=== PATIENT | female | born 1945 | race Caucasian/White ===

== ENCOUNTER 2019-10-22 14:39 | Emergency (ER) | payer OTHER ==
[2019-10-22 15:53] LABS: Absolute Lymphocytes (CBC) 1.4 K/uL (0.7-4.9); Basophils % 0.5 % (0-1.3); Hematocrit 38.2 % (36.0-45.0); Lymphocytes % 8.9 % (15.3-44.8); MPV 9.5 fL (7.6-11.3); RBC Red Blood Cell Count 4.61 M/uL (3.86-4.86)
[2019-10-22 15:55] LABS: Urine Blood NEGATIVE (NEG); Urine Glucose NEGATIVE (NEG); Urine Protein 1+ (NEG); Urine pH 7.5 (5.0-7.0)
[2019-10-22 16:06] LABS: Potassium 4.3 mmol/L (3.5-5.1)
[2019-10-22 16:22] LABS: Urine Bacteria >50 /HPF (<20); Urine RBC NONE SEEN /HPF (NONE SEEN)
--- NOTE | 2019-10-22 16:22 | RAD REPORT ---
EXAM DESCRIPTION: RAD - Chest Single View - 10/22/2019 3:40 pm CLINICAL HISTORY: Cough, shortness of breath COMPARISON: July 2018 TECHNIQUE: AP portable chest image was obtained 1535 hours . FINDINGS: Interstitial fibrotic pattern matches comparison. No focal lung parenchymal process. No fa ilure or volume overload. Heart and vasculature are normal. No measurable pleural effusion and no pneumothorax. No acute bony abnormality seen. No acute aortic findings suspected. IMPRESSION: No acute cardiopulmonary process. Interstitial fibrotic pattern is stable from July 2018.
[2019-10-22 16:23] LABS: Urine Culture Reflex Order NOT NEEDED; Urine Mucus 1+ /HPF (NONE SEEN)
[2019-10-22] MEDS ORDERED: IBUPROFEN 200 MG TAB PO ONE (16:32)
--- NOTE | 2019-10-22 17:14 | RAD REPORT ---
EXAM DESCRIPTION: CT - Abdomen Pelvis W Contrast - 10/22/2019 5:02 pm CLINICAL HISTORY: ABD PAIN COMPARISON: None. TECHNIQUE: Biphasic, helical CT imaging of the abdomen and pelvis was performed following 100 ml non -ionic IV contrast. No oral contrast administered. All CT scans are performed using dose optimization technique as appropriate and may include automated exposure control or mA/KV adjustment according to patient size. FINDINGS: No acute pleural or parenchymal finding of either lung base. A large hiatal hernia is pres ent. No pericardial thickening or effusion. The liver, spleen, and pancreas show no suspicious findings. Gallbladder and biliary tree are also wi thout suspicious finding. Symmetric renal function is seen with no hydronephrosis or suspicious renal mass. No pyelonephritis o r acute parenchymal process. Urinary bladder is fully contracted limiting assessment. Uterus and ovar ies show no suspicious findings. No adnexal mass. No adrenal abnormalities. No acute gastric finding. No acute small bowel finding. No appendicitis. Moderate stool volume seen i n the colon from cecum through left-side transverse colon. Approximately 4-5 centimeter long segment of descending colon shows circumferential wall thickening with stranding in the adjacent fat. A few p unctate air densities are present outside of the lumen. No abscess. The punctate extraluminal air is not significant. More distally a prominent sigmoid diverticulosis without additional site of divertic ulitis. No pneumatosis. No other areas of free air or inflammatory stranding. No hernia, mass or bu lky lymphadenopathy. Disc and bony degenerative changes are present. No acute bone finding. Patient has a very large infrarenal abdominal aortic aneurysm. This measures 9.5 cm AP x 7.4 cm TR an d extends over a 14 centimeter length. Mural thrombus fills the aneurysm. There is a 3 centimeter x 3 centimeter contrast opacified patent lumen. At the proximal aspect there is extensive atheroscleroti c change. IMPRESSION: Very large infrarenal abdominal aortic aneurysm measuring 9.5 x 7.4 cm in cross-sectiona l diameter. Aneurysm extends over a 14 centimeter length from renal artery's to bifurcation. There is a 3 centimeter diameter patent contrast opacified channel. No evidence for leakage of the an eurysm. Acute diverticulitis of the descending colon. Stranding is present in the adjacent fat with a few pun ctate extraluminal air collections. No abscess or surgically emergent finding.
[2019-10-22] MEDS ORDERED: NICOTINE 21 MG/PAT TD ONE (17:48)
[2019-10-22] MEDS ORDERED: CIPROFLOXACIN 400mg IV 400 MG/200 ML BAG IV ONE (17:48)
[2019-10-22] MEDS ORDERED: METRONIDAZOLE 500mg IVPB 500 MG/100 ML BAG IV ONE (17:48)
--- NOTE | 2019-10-22 18:36 | EDPHYS ---
Physician Documentation [facility] Name: Jennifer Bejarano Age: 74 yrs Sex: Female : 1945 Arrival Date: 10/22/2019 Time: 14:41 Bed 26 Private MD: ED Physician Craig Jones HPI: 10/22 15:25 This 74 yrs old Female presents to ER via Ambulatory with complaints of la1 Cough, Back Pain, Fever. 15:25 The patient or guardian reports cough, that is intermittent, described as moderate. la1 Onset: The symptoms/episode began/occurred 2 day(s) ago. Severity of symptoms: At their worst the symptoms were mild. Modifying factors: The symptoms are alleviated by nothing, the symptoms are aggravated by nothing. Associated signs and symptoms: Pertinent positives: fever, Pertinent negatives: chest pain, diarrhea, ear ache, nausea. The patient has not experienced similar symptoms in the past. The patient has not recently seen a physician. Pt reports that for the last two weeks she has had increased sputum production and then recently began having lower abd/hip pain and fever. Historical: - Allergies: 15:24 PENICILLINS; mg2 - Home Meds: 15:24 Zoloft oral [Active]; mg2 - PMHx: 15:24 Anxiety; mg2 - PSHx: 15:24 None; mg2 - Immunization history:: Flu vaccine is not up to date. - Social history:: Smoking status: Patient uses tobacco products, smokes one-half pack cigarettes per day, Patient uses alcohol, but reports only rare drinking. Patient/guardian denies using street drugs, IV drugs. - Ebola Screening: : No symptoms or risks identified at this time. ROS: 15:26 Constitutional: + fever/chills Eyes: Negative for injury, pain, redness, and discharge, la1 ENT: Negative for injury, pain, and discharge, Neck: Negative for injury, pain, and swelling, Cardiovascular: Negative for chest pain, palpitations, and edema, Respiratory: + cough Abdomen/GI: Negative for abdominal pain, nausea, vomiting, diarrhea, and constipation, Back: Negative for injury and pain, MS/Extremity: Negative for injury and deformity, Neuro: Negative for headache, weakness, numbness, tingling, and seizure. Exam: 15:27 Constitutional: This is a well developed, well nourished patient who is awake, alert, la1 and in no acute distress. Head/Face: Normocephalic, atraumatic. Eyes: Pupils equal round and reactive to light, extra-ocular motions intact. Periorbital areas with no swelling, redness, or edema. ENT: Mucous membranes moist. Neck: . Supple, full range of motion without nuchal rigidity, or vertebral point tenderness. No Meningismus. Chest/axilla: Normal chest wall appearance and motion. Nontender with no deformity. No lesions are appreciated. Cardiovascular: Regular rate and rhythm with a normal S1 and S2. No gallops, murmurs, or rubs. Normal PMI, no JVD. No pulse deficits. 15:27 Respiratory: the patient does not display signs of respiratory distress, Respirations: normal, Breath sounds: wheezing: expiratory that is mild, is scattered. 15:27 Abdomen/GI: Inspection: abdomen appears normal, Bowel sounds: normal, in all quadrants, Palpation: abdomen is soft and non-tender, in all quadrants, Indicators: McBurney's point is not tender, Rhodes's sign is negative, Rovsing's sign is negative, Obturator sign is negative, Psoas sign is negative. 15:27 Back: CVA tenderness, is absent, vertebral tenderness, is not appreciated. Vital Signs: 15:22 BP 110 / 76; Pulse 84; Resp 18; Temp 99.6; Pulse Ox 100% on R/A; Weight 74.84 kg; mg2 Height 5 ft. 7 in. (170.18 cm); Pain 4/10; 16:36 BP 106 / 61; Pulse 69; Resp 18; Pulse Ox 97% on R/A; Pain 5/10; mg2 17:50 BP 104 / 51; Pulse 66; Resp 18; Pulse Ox 95% on R/A; mg2 18:50 BP 110 / 60; Pulse 65; Resp 18; Temp 98; Pulse Ox 100% on R/A; mg2 15:22 Body Mass Index 25.84 (74.84 kg, 170.18 cm) mg2 MDM: 15:08 Patient medically screened. la1 18:33 Data reviewed: vital signs, nurses notes, lab test result(s), radiologic studies, I la1 have discussed the patient's presentation/case with the attending Emergency Department Physician; and as a result, I will admit patient. Data interpreted: Pulse oximetry: on room air is 95 %. Interpretation: normal. Counseling: I had a detailed discussion with the patient and/or guardian regarding: the historical points, exam findings, and any diagnostic results supporting the discharge/admit diagnosis, lab results, radiology results, the need to transfer to another facility, [facility] does not immediately have the required specialist. Physician consultation: was called at 18:00, was contacted at 18:00, regarding regarding transfer, to [facility]. ED course: spoke with Dr. Burton at [facility] who accepted pt for AAA. . 10/22 15:24 Order name: CBC with Diff; Complete Time: 16:21 la1 10/22 15:24 Order name: BMP; Complete Time: 16:21 la1 10/22 15:24 Order name: Flu; Complete Time: 16:21 la1 10/22 15:36 Order name: Urine Microscopic Only; Complete Time: 16:24 la1 10/22 15:48 Order name: Urine Dipstick--Ancillary (enter results); Complete Time: 16:21 bd 10/22 15:24 Order name: Urine Dipstick-Ancillary (obtain specimen); Complete Time: 15:39 la1 10/22 15:24 Order name: Chest Single View XRAY; Complete Time: 17:32 la1 10/22 15:24 Order name: SL; Complete Time: 15:39 la1 10/22 16:47 Order name: CT Abd/Pelvis - IV Contrast Only; Complete Time: 17:32 la1 Administered Medications: 16:35 Drug: Motrin 200 mg Route: PO; mg2 17:42 Follow up: Response: No adverse reaction mg2 17:50 Drug: Flagyl 500 mg Volume: 100 ml; Route: IVPB; Rate: 200 ml/hr; Infused Over: 30 mg2 mins; Site: right forearm; 18:20 Follow up: Response: No adverse reaction; IV Status: Completed infusion mg2 18:25 Drug: Cipro 400 mg Volume: 200 ml; Route: IVPB; Infused Over: 60 mins; Site: right mg2 forearm; 19:25 Follow up: Response: No adverse reaction; IV Status: Completed infusion mg2 19:12 Drug: Nicotine 21 mg/24 hr 1 patches {Note: in the left arm.} Route: Transdermal; Site: mg2 affected area; Disposition: 10/22/19 18:36 Transfer ordered to [facility]. Diagnosis are Abdominal aortic aneurysm, without rupture, Diverticulitis without perforation, bleeding, or abscess. - Reason for transfer: Higher level of care. - Accepting physician is Dr. Burton. - Condition is Stable. - Problem is new. - Symptoms are unchanged. Addendum: 10/23/2019 21:07 Co-signature as Attending Physician, Craig Jones MD I agree with the assessment and k dr plan of care. Signatures: Dispatcher [employer] EDMS Craig Jones MD MD kdr Mehul Goel, ASSOCIATE PROFESSOR OF LITERACY-C ASSOCIATE PROFESSOR OF LITERACY-Cla1 Rogelio Das RN RN mg2 Corrections: (The following items were deleted from the chart) 10/22 19:20 18:36 10/22/2019 18:36 Transfer ordered to [facility]. Diagnosis is mg2 Abdominal aortic aneurysm, without rupture; Diverticulitis without perforation, bleeding, or abscess. Reason for transfer: Higher level of care. Accepting physician is Dr. Burton. Condition is Stable. Problem is new. Symptoms are unchanged. la1
--- NOTE | 2019-10-22 18:36 | ER ---
Nurse's Notes [facility] Name: Jennifer Bejarano Age: 74 yrs Sex: Female : 1945 Arrival Date: 10/22/2019 Time: 14:41 Bed 26 Private MD: Diagnosis: Abdominal aortic aneurysm, without rupture;Diverticulitis without perforation, bleeding, or abscess Presentation: 10/22 15:20 Presenting complaint: Patient states: i have both hip pain and cough for few days. i mg2 think i have kidney stones. i took 1 tab motrin \T\ 1300. Transition of care: patient was not received from another setting of care. Onset of symptoms was October 2019. Risk Assessment: Do you want to hurt yourself or someone else? Patient reports no desire to harm self or others. Initial Sepsis Screen: Does the patient meet any 2 criteria? No. Patient's initial sepsis screen is negative. Does the patient have a suspected source of infection? No. Patient's initial sepsis screen is negative. Care prior to arrival: None. 15:20 Method Of Arrival: Ambulatory mg2 15:20 Acuity: NATASHA 3 mg2 Historical: - Allergies: 15:24 PENICILLINS; mg2 - Home Meds: 15:24 Zoloft oral [Active]; mg2 - PMHx: 15:24 Anxiety; mg2 - PSHx: 15:24 None; mg2 - Immunization history:: Flu vaccine is not up to date. - Social history:: Smoking status: Patient uses tobacco products, smokes one-half pack cigarettes per day, Patient uses alcohol, but reports only rare drinking. Patient/guardian denies using street drugs, IV drugs. - Ebola Screening: : No symptoms or risks identified at this time. Screenin:25 Abuse screen: Denies threats or abuse. Denies injuries from another. Nutritional mg2 screening: No deficits noted. Tuberculosis screening: No symptoms or risk factors identified. Fall Risk None identified. Assessment: 16:37 General: Appears in no apparent distress. comfortable, Behavior is calm, cooperative. mg2 Pain: Complains of pain in back Pain does not radiate. Pain currently is 5 out of 10 on a pain scale. Quality of pain is described as aching, Pain began gradually, Is intermittent. Neuro: Level of Consciousness is awake, alert, obeys commands, Oriented to person, place, time, situation. Cardiovascular: Capillary refill < 3 seconds Patient's skin is warm and dry. Respiratory: Airway is patent Respiratory effort is even, unlabored, Respiratory pattern is regular, symmetrical. GI: No signs and/or symptoms were reported involving the gastrointestinal system. : Urine is cloudy, Reports pain in bilateral flank(s), in lower back. EENT: No signs and/or symptoms were reported regarding the EENT system. Derm: Skin is intact, is healthy with good turgor, Skin is pink, warm \T\ dry. normal. Musculoskeletal: Circulation, motion, and sensation intact. Capillary refill < 3 seconds. 17:49 Reassessment: Patient appears in no apparent distress at this time. Patient and/or mg2 family updated on plan of care and expected duration. Pain level reassessed. Patient is alert, oriented x 3, equal unlabored respirations, skin warm/dry/pink. 18:41 Reassessment: Report called to Nilam HAMMOND at [facility]. hb 18:59 Reassessment: Patient appears in no apparent distress at this time. Patient and/or mg2 family updated on plan of care and expected duration. Pain level reassessed. Patient is alert, oriented x 3, equal unlabored respirations, skin warm/dry/pink. 19:10 Reassessment: patient picked by EMS. patient in good condition. pain-free. mg2 Vital Signs: 15:22 BP 110 / 76; Pulse 84; Resp 18; Temp 99.6; Pulse Ox 100% on R/A; Weight 74.84 kg; mg2 Height 5 ft. 7 in. (170.18 cm); Pain 4/10; 16:36 BP 106 / 61; Pulse 69; Resp 18; Pulse Ox 97% on R/A; Pain 5/10; mg2 17:50 BP 104 / 51; Pulse 66; Resp 18; Pulse Ox 95% on R/A; mg2 18:50 BP 110 / 60; Pulse 65; Resp 18; Temp 98; Pulse Ox 100% on R/A; mg2 15:22 Body Mass Index 25.84 (74.84 kg, 170.18 cm) mg2 ED Course: 14:41 Patient arrived in ED. as 15:08 Mehul Goel FNP-C [facility]. la1 15:08 Craig Jones MD is Attending Physician. la1 15:19 Rogelio Das, RN is Primary Nurse. mg2 15:22 Triage completed. mg2 15:24 Arm band placed on. mg2 15:39 No provider procedures requiring assistance completed. Inserted saline lock: 20 gauge mg2 in right forearm, using aseptic technique. Blood collected. 15:43 Chest Single View XRAY In Process Unspecified. EDMS 16:39 Patient has correct armband on for positive identification. Pulse ox on. NIBP on. mg2 17:03 CT Abd/Pelvis - IV Contrast Only In Process Unspecified. EDMS 19:19 Patient transferred, IV remains in place. mg2 Administered Medications: 16:35 Drug: Motrin 200 mg Route: PO; mg2 17:42 Follow up: Response: No adverse reaction mg2 17:50 Drug: Flagyl 500 mg Volume: 100 ml; Route: IVPB; Rate: 200 ml/hr; Infused Over: 30 mg2 mins; Site: right forearm; 18:20 Follow up: Response: No adverse reaction; IV Status: Completed infusion mg2 18:25 Drug: Cipro 400 mg Volume: 200 ml; Route: IVPB; Infused Over: 60 mins; Site: right mg2 forearm; 19:25 Follow up: Response: No adverse reaction; IV Status: Completed infusion mg2 19:12 Drug: Nicotine 21 mg/24 hr 1 patches {Note: in the left arm.} Route: Transdermal; Site: [facility] [place]; Outcome: 18:36 ER care complete, transfer ordered by . la1 19:19 Transferred by ground EMS to [facility], Transfer form completed. mg2 19:19 Condition: stable 19:19 Instructed on the need for transfer, Demonstrated understanding of instructions. 19:20 Patient left the ED. mg2 Signatures: Dispatcher [employer] EDMS Cathleen Horton Lee, MEDICAL BILLING SPECIALIST-C MEDICAL BILLING SPECIALIST-Cla1 Cleo Lares RN RN Rogelio Das, MANISH RN mg2 Corrections: (The following items were deleted from the chart) 19:00 17:50 Pulse 66bpm; Resp 18bpm; Pulse Ox 95% RA; mg2 mg2
== END 2019-10-22 19:20 | disposition short-term general hospital (02) ==
LOC: ER 14:39
DX: I71.4 Abdominal aortic aneurysm, without rupture (principal); K57.32 Diverticulitis of large intestine without perforation or abscess without bleeding; Z88.0 Allergy status to penicillin; F41.9 Anxiety disorder, unspecified; F17.210 Nicotine dependence, cigarettes, uncomplicated
CPT/HCPCS: 96365; 96367; 85025; 80048; 36415; 87804 ×2; 74177; 71045; 99285; Q9967; J0744; 81003; 81015

== ENCOUNTER 2023-08-13 11:41 | Emergency (ER) | payer OTHER ==
--- OUTSIDE RECORDS SUMMARY | 2023-08-13 11:46 | XMS REPORT | Continuity of Care Document ---
:[address] [facility] t Address [address] [place] [address] Care Team Providers Name Role Phone No, Pcp [facility] Primary Care Physician Unavailable TAMIKO MARQUEZ Attending Clinician Unavailable TAMIKO MARQUEZ Admitting Clinician Unavailable Problems Condition Condition Condition Status Onset Resolution Last Treating Co mments Source Name Details Category Date Date Treatment Clinician Date Acute Acute Disease Active 2018-[address] [facility] [address] post-opera post-opera 2-23 Roxana kes tive pain tive pain 00:00: [facility] [address] Acute Acute Disease Active 2018-[address] [facility] [address] blood loss blood loss 2-23 Roxana kes anemia anemia 00:00: Medical [address] Symptomati Symptomati Disease Active 2018-[address] [facility] AAA s/p c AAA s/p 2- [facility] EVAR w/ EVAR w/ 00:00: Medical Dr. Palma [address] Coselli on Coselli on 10/26/19 10/26/19 Hypokalemi Hypokalemi Disease Active 2018-[address] [facility] a [facility] [address] Smoking Smoking Disease Active 2018-[address] [facility] greater greater 2- [facility] than 40 than 40 00:00: Medical pack years pack years 00 Ce nter Hypertensi Hypertensi Disease Active 2018-[address] ve ve 2- [facility] emergency emergency 00:00: Medi afshan [address] Diverticul Diverticul Disease Active 2018-[address] itis itis 2- [facility] 00:00: Medical [address] [place] Abdominal Abdominal Disease Recurre 2018-[address] aortic aortic nce 12-24 [facility] aneurysm aneurysm 00:00: Medica l (AAA) (AAA) 00 Center Allergies, Adverse Reactions, Alerts This patient has no known allergies or adverse reactions. Social History Social Habit Start Date Stop Date Quantity Comments Source History of tobacco Smokes tobacco [facility] Cigarettes smoked 2019-10-22 2019-10-[address] [facility] current (pack per 00:00:00 00:00:00 Medical Center day) - Reported Cigarette 2019-10-22 2019-10-[address] [facility] pack-years 00:00:00 00:00:00 [facility] Tobacco use and 2019-10-22 2019-10-22 Smokeless [address] [facility] exposure 00:00:00 00:00:00 non-user [facility] Sex Assigned At [birth year] [facility] [address] Roxana kes 00:00:00 00:00:00 [facility] Smoking Status Start Date Stop Date Source Smokes tobacco daily 2019-10-22 00:00:00 [facility] Medications Ordered Filled Start Stop Current Ordering Indication Dosage Frequency Signature Comments Components Source Medication Medication Date Date Medication? Clinician (SIG) Name Name ALPRAZolam 2018-11 Yes .25mg Take 0.[address] (XANAX) 2-24 mg by [facility] 0.25 MG 16:51: mouth Medical tablet 51 every Center night as needed for Anxiety. sertraline Yes 100mg QD Take [address] (ZOLOFT) 9-21 mg by [facility] 100 MG 00:00: mouth Medical tablet 00 daily. Center Procedures This patient has no known procedures. Results Test Description Test Time Test Comments Results Result [facility] e Comments CTA, CHEST, 2019-10-28 Reason for Addendum BeginsREPORT ABDOMEN - PELVIS, 16:19:00 exam:->Post STATUS:A PATIENT ID: FOR DISSECTION EVAR [id number] I agree with the nonvascular findings detailed by Dr. Nichols. Additional nonvascular findings include: *The apparent right apical nodule likely represents scarring. *New groundglass opacities in the left upper lobe. Pneumonia cannot be excluded. *Groundglass nodules measure 9 mm in the left upper lobe (axial series image 41) and 1.1 cm in the right upper lobe (axial series image 88). Follow-up chest CT is recommended in 6 months for reassessment. *2.8 x 1.6 cm air and fluid-containing structure medial to the descending colon, likely contained diverticular perforation or abscess. Signed: Lawrence Cummins MDReport Verified Date/Time: 10/28/2019 16:19:20 Reading Location: [facility] Diagnostic Imaging Reading Room - [place] [id number] angiography of the thoracoabdominal aorta and pelvic arteries, 28-Oct-19 INDICATION: This is a 74 year old female post endostent placement in the abdominal aorta presents for follow-up assessment. TECHNIQUE: Spiral acquisition before and during intravenous contrast administration using a Bridgett CT scanner. Images were obtained before and during the dynamic passage of intravenous contrast material. Multi-planar 3-D volume-rendering reconstruction was performed using an independent workstation interactively by the interpreting physician as well as the 3-D specialist for optimal visualisation of the thoracoabdominal aorta, the pelvic arteries as well as its proximal branches. Please refer to the contrast sheet scanned in the EPIC system for the amount and route of contrast given. This exam was performed according to our departmental dose-optimisation programme, which includes automated exposure control, adjustment of the mA and/or kV according to patient size and/or use of iterative reconstruction technique. Dose modulation, iterative reconstruction, and/or weight based adjustment of the mA/kV was utilized to reduce the radiation dose to as low as reasonably achievable. ECG gating was not utilized to minimise radiation exposure, especially the region of interest in the abdomen and not in the chest. FINDINGS: VASCULAR: The central pulmonary artery is normal in calibre. The cardiac chambers demonstrate normal atrioventricular and ventriculoarterial concordance, and systemic and pulmonary venous return. In the nongated data set, the left ventricle is normal in size. No pericardial effusion is identified. Cortical origins are normal and calcific lesions identified in the proximal LCx and LAD. No acute pathology is identified in the thoracic aorta. At least moderate noncalcific atherosclerosis is identified in the transverse arch and descending thoracic aorta. The thickness of the protruding noncalcific atheroma in the descending thoracic aorta, at image 175, is approximately 12 mm. Finally, in the posterior aspect of the descending thoracic aorta, at image 102, there is likely some linear thrombus identified. See snapshots for details. Mobility cannot be commented upon. Arch vessel branching pattern is normal, and the visualised arch vessels are seen to be widely patent proximally, however, there is nonobstructive atherosclerosis seen at the takeoff of the left subclavian artery, though there is still 50% cross-sectional area that is patent indicating no significant obstructive lesion is present at this level. Remainder of the the left subclavian artery is widely patent. Remainder of the the arch vessels are widely patent. In the abdominal aorta, endostent is placed, commencing inferior to the takeoff of the left renal artery, with typical crisscrossing patent and the left limbs terminates in the left and the right common unit arteries. In the available images, no endoleak is identified. The right limb is widely patent. The left left limb is also widely patent though at image 322, the diameter is approximately 5 to 6 mm, when compared to the adjacent right iliac limb at the similar level of 10 to 11 mm. Correlate with implantation history. Thereafter, the external iliac, common femoral, and the visualised SFA, bilaterally, widely patent with minimal nonobstructive atherosclerosis identified. The coeliac axis, SMA are widely patent. KRZYSZTOF fills retrogradely by surrounding collaterals. There are single left and right renal arteries identified. The right renal artery is widely patent. A mixture of calcific and noncalcific atherosclerosis is identified at the takeoff of the left renal artery, consequent is moderate to significant focal lesion. Quantitative dimensions of the aorta are as follows: 3.4 cm at the sinuses of Valsalva (the sino-tubular junction is preserved); 2.7 cm at the proximal ascending thoracic aorta; 3.4 cm at the mid ascending aorta; 2.7 cm at the distal ascending aorta; 2.7 cm at the mid transverse arch; 2.8 cm at the proximal descending aorta; 3.3 cm at the mid descending aorta; 3.3 x 3.2 cm at the distal descending thoracic aorta. In the abdomen, the aorta measures 3.5 x 3.2 cm at the mesenteric segment; 3.2 x 3.1 cm at the renal segment; #1 x 7.9 cm at the infrarenal; 6.8 x 5.9 cm at the distal infrarenal; and 4.3 cm at aortic bifurcation. Aortic volume: Not measured. NON-VASCULAR: The visualised thyroid gland is unremarkable. The chest wall mediastinum appears grossly unremarkable. No significant adenopathy is identified in the mediastinum, though some small lymph nodes are seen, some with fatty hilum, consider nonspecific in nature. In the lung windows, no endobronchial lesion is seen, and there could be some debris/mucus stranding identified in the anterior aspect of the trachea, for example image 48. Mild bibasal pleural effusions identified with associated lytic changes. Some subsegmental atelectatic changes are seen. Centrilobular emphysematous changes identified, mostly in the upper lobes. There could be a 5 to 6 mm noncalcified nodule identified in the right apex at image 23. In the abdomen, the liver and spleen appears unremarkable. The liver edge is smooth. No abnormal enhancing structures identified. The gallbladder, adrenal glands, and the pancreas appears mostly unremarkable. In the precontrast series, there is some slight identified in the gallbladder. 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 This could be to follow in future aorta examination. No acute renal pathology is seen and no hydronephrosis or perirenal fluid collection is identified. Some cortical scarring is identified in the lateral as of the left kidney. Subcentimeter hypodensity is identified in the posterior aspect of the right kidney measures one to characterise. Bowel is not well assessed by CT angiography as enteric contrast is not given. No obvious bowel dilation is identified. Scattered diverticular disease is seen in the distal colon with no inflammatory changes identified. A moderate size hiatus hernia is identified. The uterus is unremarkable; tiny calcification is seen that may represent uterine fibroid. Foci of air is identified in the bladder that could be due to recent catheterisation. No obvious abnormal adnexal is is seen and CT is not optimised in the assessment of pelvic gynecological structure. No free air is identified abdomen and pelvis. Some trace free fluid identified in dependent portion of the pelvis, in the right, simple in nature, considered nonspecific in nature. In the bony windows, no acute bony pathology is identified. Mild degenerative changes is noted. CONCLUSIONS: 1. No acute pathology is identified in the thoracic aorta. However, protruding atheroma is seen especially in the transverse arch and descending thoracic aorta are as described above. Endostent placement is seen in the abdominal aorta with no endoleak identified artery and delay images. The pelvic arteries are patent, bilaterally. There is no evidence of acute aortic pathology, specifically, there is no dissection, intramural hematoma, or contained rupture. Quantitative dimension of the thoracoabdominal aorta are as described above. Aortic volume is not measured. The radiology department requires follow duration to be dictated which is unnecessary as the ordering physician is the [employer] Cardiovascular Surgeon of the [facility], and patient will be follow-up according to stent-graft protocol. 2. Patent mesenteric and renal arteries. 3. Other findings as described above. Pulmonary emphysematous changes. Noncalcified nodule is seen in the right apex measure 5 to 6 mm in diameter. No prior CT scans available for comparison. Professional society recommendation as follows: Nodule Size <6 mm High-Risk Patient: Optional CT at 12 months. 4. An addendum will be dictated regarding the non-vascular findings by the [employer] T[employer] Operator Radiologist. Signed: Vikram Nichols Verified Date/Time: 10/28/2019 12:43:56 , CHEST, 1 2019-10-28 Reason for FINAL REPORT PATIENT VIEW, NON DEPT 09:36:00 exam:->Post-opS ID: [id number] CHEST AP hould this be PORTABLE Comparison performed at exam: 10/27/2019 the History provided: bedside?->Yes Postop follow-up Heart size normal. Vascular congestion has cleared. Minimal basilar atelectasis. No focal consolidation. Signed: Marlena Awad Verified Date/Time: 10/28/2019 09:36:04 Reading Location: [facility] Diagnostic Imaging Reading Room - [address] PHORUS 2019-10-28 06:31:00 Test Item Value Reference Range Interpretation Comme nts PHOSPHORUS (BEAKER) (test code = 604) 2.9 mg/dL 2.3-4.7 [id number] 06:31:00 Test Item Value Reference Range Interpretation Comments MAGNESIUM (BEAKER) (test code = 1.8 mg/dL 1.6-2.6 627) BASIC METABOLIC [id number] 06:31:00 Test Item Value Reference Range Interpretation Comments SODIUM (BEAKER) 135 meq/L 136-145 L (test code = 381) POTASSIUM (BEAKER) 3.0 meq/L 3.5-5.1 L (test code = 379) CHLORIDE (BEAKER) 103 meq/L 98-107 (test code = 382) CO2 (BEAKER) (test 23 meq/L 22-29 code = 355) BLOOD UREA NITROGEN 11 mg/dL 7-21 (BEAKER) (test code = 354) CREATININE (BEAKER) 0.89 mg/dL 0.57-1.25 (test code = 358) GLUCOSE RANDOM 123 mg/dL 70-105 H (BEAKER) (test code = 652) CALCIUM (BEAKER) 8.2 mg/dL 8.4-10.2 L (test code = 697) EGFR (BEAKER) (test 62 mL/min/1.73 ESTIMA LINDA GFR IS code = 1092) sq m NOT ACCURATE CREATININE CLEARANCE IN PREDICTING GLOMERULAR FILTRATION RATE . ESTIMATED GFR I S NOT APPLICABLE FOR DIALYSIS PATIEN TS. [id number] 05:40:00 Test Item Value Reference Range Interpretation Comments PARTIAL THROMBOPLASTIN TIME 38.0 seconds 22.5-36.0 H (BEAKER) (test code = 760) PROTHROMBIN [id number] 05:39:00 Test Item Value Reference Range Interpretation Comments PROTIME (BEAKER) (test code = 16.7 seconds 11.9-14.2 H 759) INR (BEAKER) (test code = 370) 1.4 <=5.9 Effective 04/02/2019: PT Reference Range ChangeNew: 11.9-14.2 Previous: 11.7- 14.7RECOMMENDED COUMADIN/WARFARIN INR THERAPY RANGESSTANDARD DOSE: 2.0-3.0 Includes: PROPHYLAXIS for venous thrombosis, systemic embolization; TREATMENT for venous thrombosis and/or pulmonary embolus.HIGH RISK: Target INR is 2.5-3.5 for patients wiht mechanical heart valves.CBC (HEMOGRAM ONLY)2019-10-28 05:29:00 Test Item Value Reference Range Interpretation Comments WHITE BLOOD CELL COUNT (BEAKER) 9.1 K/ L 3.5-10.5 (test code = 775) RED BLOOD CELL COUNT (BEAKER) 3.34 M/ L 3.93-5.22 L (test code = 761) HEMOGLOBIN (BEAKER) (test code = 9.0 GM/DL 11.2-15.7 L 410) HEMATOCRIT (BEAKER) (test code = 28.5 % 34.1-44.9 L 411) MEAN CORPUSCULAR VOLUME (BEAKER) 85.3 fL 79.4-94.8 (test code = 753) MEAN CORPUSCULAR HEMOGLOBIN 26.9 pg 25.6-32.2 (BEAKER) (test code = 751) MEAN CORPUSCULAR HEMOGLOBIN CONC 31.6 GM/DL 32.2-35.5 L (BEAKER) (test code = 752) RED CELL DISTRIBUTION WIDTH 14.1 % 11.7-14.4 (BEAKER) (test code = 412) PLATELET COUNT (BEAKER) (test 265 K/CU MM 150-450 code = 756) MEAN PLATELET VOLUME (BEAKER) 10.4 fL 9.4-12.3 (test code = 754) NUCLEATED RED BLOOD CELLS 0 /100 WBC 0-0 (BEAKER) (test code = 413) RAD, CHEST, 1 VIEW, NON [id number] 06:03:00Reason for exam:->Post-opShould this be performed at the bedside?->YesFINAL REPORT RAD, CHEST, 1 VIEW, NON DEPT INDICATION: Post-op COMPARISON: Exam from 17 hours prior FINDINGS: Portable frontal view of the chest. IMPRESSION: Support Lines: None. Lungs and pleura: Asymmetric elevation of the right hemidiaphragm with new small right pleural effusionand adjacent mild right basilar airspace disease. There is also left basilar subsegmental atelectasis. No pneumothorax.Heart and mediastinum: Stable contours. Additional findings: None. Signed: Mindi Ren MDReport Verified Date/Time: 10/27/2019 06:03:02 [id number] 04:53:00 Test Item Value Reference Range Interpretation Comments PHOSPHORUS (BEAKER) (test code = 3.2 mg/dL 2.3-4.7 604) [id number] 04:53:00 Test Item Value Reference Range Interpretation Comments MAGNESIUM (BEAKER) (test code = 1.8 mg/dL 1.6-2.6 627) BASIC METABOLIC [id number] 04:53:00 Test Item Value Reference Range Interpretation Comments SODIUM (BEAKER) 137 meq/L 136-145 (test code = 381) POTASSIUM (BEAKER) 3.2 meq/L 3.5-5.1 L (test code = 379) CHLORIDE (BEAKER) 106 meq/L 98-107 (test code = 382) CO2 (BEAKER) (test 24 meq/L 22-29 code = 355) BLOOD UREA NITROGEN 9 mg/dL 7-21 (BEAKER) (test code = 354) CREATININE (BEAKER) 0.99 mg/dL 0.57-1.25 (test code = 358) GLUCOSE RANDOM 105 mg/dL 70-105 (BEAKER) (test code = 652) CALCIUM (BEAKER) 8.4 mg/dL 8.4-10.2 (test code = 697) EGFR (BEAKER) (test 55 mL/min/1.73 ESTIMA LINDA GFR IS code = 1092) sq m NOT ACCURATE CREATININE CLEARANCE IN PREDICTING GLOMERULAR FILTRATION RATE . ESTIMATED GFR I S NOT APPLICABLE FOR DIALYSIS PATIEN TS. [id number] 04:30:00 Test Item Value Reference Range Interpretation Comments PARTIAL THROMBOPLASTIN TIME 33.4 seconds 22.5-36.0 (BEAKER) (test code = 760) PROTHROMBIN [id number] 04:29:00 Test Item Value Reference Range Interpretation Comments PROTIME (BEAKER) (test code = 15.7 seconds 11.9-14.2 H 759) INR (BEAKER) (test code = 370) 1.3 <=5.9 Effective 04/02/2019: PT Reference Range ChangeNew: 11.9-14.2 Previous: 11.7- 14.7RECOMMENDED COUMADIN/WARFARIN INR THERAPY RANGESSTANDARD DOSE: 2.0-3.0 Includes: PROPHYLAXIS for venous thrombosis, systemic embolization; TREATMENT for venous thrombosis and/or pulmonary embolus.HIGH RISK: Target INR is 2.5-3.5 for patients wiht mechanical heart valves.CBC W/PLT COUNT & AUTO [id number] 04:25:00 Test Item Value Reference Range Interpretation Comments WHITE BLOOD CELL COUNT (BEAKER) 8.7 K/ L 3.5-10.5 (test code = 775) RED BLOOD CELL COUNT (BEAKER) 3.50 M/ L 3.93-5.22 L (test code = 761) HEMOGLOBIN (BEAKER) (test code = 9.4 GM/DL 11.2-15.7 L 410) HEMATOCRIT (BEAKER) (test code = 30.2 % 34.1-44.9 L 411) MEAN CORPUSCULAR VOLUME (BEAKER) 86.3 fL 79.4-94.8 (test code = 753) MEAN CORPUSCULAR HEMOGLOBIN 26.9 pg 25.6-32.2 (BEAKER) (test code = 751) MEAN CORPUSCULAR HEMOGLOBIN CONC 31.1 GM/DL 32.2-35.5 L (BEAKER) (test code = 752) RED CELL DISTRIBUTION WIDTH 14.0 % 11.7-14.4 (BEAKER) (test code = 412) PLATELET COUNT (BEAKER) (test 250 K/CU MM 150-450 code = 756) MEAN PLATELET VOLUME (BEAKER) 9.8 fL 9.4-12.3 (test code = 754) NUCLEATED RED BLOOD CELLS 0 /100 WBC 0-0 (BEAKER) (test code = 413) NEUTROPHILS RELATIVE PERCENT 75 % (BEAKER) (test code = 429) LYMPHOCYTES RELATIVE PERCENT 12 % (BEAKER) (test code = 430) MONOCYTES RELATIVE PERCENT 11 % (BEAKER) (test code = 431) EOSINOPHILS RELATIVE PERCENT 2 % (BEAKER) (test code = 432) BASOPHILS RELATIVE PERCENT 0 % (BEAKER) (test code = 437) NEUTROPHILS ABSOLUTE COUNT 6.50 K/ L 1.56-6.13 H (BEAKER) (test code = 670) LYMPHOCYTES ABSOLUTE COUNT 1.02 K/ L 1.18-3.74 L (BEAKER) (test code = 414) MONOCYTES ABSOLUTE COUNT (BEAKER) 0.94 K/ L 0.24-0.36 H (test code = 415) EOSINOPHILS ABSOLUTE COUNT 0.14 K/ L 0.04-0.36 (BEAKER) (test code = 416) BASOPHILS ABSOLUTE COUNT (BEAKER) 0.02 K/ L 0.01-0.08 (test code = 417) IMMATURE GRANULOCYTES-RELATIVE 1 % 0-1 PERCENT (BEAKER) (test code = 2801) CBC (HEMOGRAM ONLY)2019-10-27 04:25:00 Test Item Value Reference Range Interpretation Comments WHITE BLOOD CELL COUNT (BEAKER) 8.7 K/ L 3.5-10.5 (test code = 775) RED BLOOD CELL COUNT (BEAKER) 3.50 M/ L 3.93-5.22 L (test code = 761) HEMOGLOBIN (BEAKER) (test code = 9.4 GM/DL 11.2-15.7 L 410) HEMATOCRIT (BEAKER) (test code = 30.2 % 34.1-44.9 L 411) MEAN CORPUSCULAR VOLUME (BEAKER) 86.3 fL 79.4-94.8 (test code = 753) MEAN CORPUSCULAR HEMOGLOBIN 26.9 pg 25.6-32.2 (BEAKER) (test code = 751) MEAN CORPUSCULAR HEMOGLOBIN CONC 31.1 GM/DL 32.2-35.5 L (BEAKER) (test code = 752) RED CELL DISTRIBUTION WIDTH 14.0 % 11.7-14.4 (BEAKER) (test code = 412) PLATELET COUNT (BEAKER) (test 250 K/CU MM 150-450 code = 756) MEAN PLATELET VOLUME (BEAKER) 9.8 fL 9.4-12.3 (test code = 754) NUCLEATED RED BLOOD CELLS 0 /100 WBC 0-0 (BEAKER) (test code = 413) RAD, CHEST, 1 VIEW, NON [id number] 12:55:00Reason for exam:->Post-opShould this be performed at the bedside?->YesFINAL REPORT Chest, one view History: Postoperative assessment Comparison: noneFindings:Clear lungs. Normal size heart. No pleural effusion or pneumothorax. Impression:No acute findings in the chest Signed: Meir Rodriguez MDReport Verified Date/Time: 10/26/2019 12:55:31 Reading Location: [place] [id number] Ortho Consult Reading Room Electronically signed by: MEIR RODRIGUEZ MD on 10/06 12:55 [id number] 12:34:00 Test Item Value Reference Range Interpretation Comments PHOSPHORUS (BEAKER) (test code = 4.2 mg/dL 2.3-4.7 604) [id number] 12:34:00 Test Item Value Reference Range Interpretation Comments MAGNESIUM (BEAKER) (test code = 1.6 mg/dL 1.6-2.6 627) BASIC METABOLIC [id number] 12:34:00 Test Item Value Reference Range Interpretation Comments SODIUM (BEAKER) 139 meq/L 136-145 (test code = 381) POTASSIUM (BEAKER) 3.4 meq/L 3.5-5.1 L (test code = 379) CHLORIDE (BEAKER) 107 meq/L 98-107 (test code = 382) CO2 (BEAKER) (test 25 meq/L 22-29 code = 355) BLOOD UREA NITROGEN 8 mg/dL 7-21 (BEAKER) (test code = 354) CREATININE (BEAKER) 0.93 mg/dL 0.57-1.25 (test code = 358) GLUCOSE RANDOM 193 mg/dL 70-105 H (BEAKER) (test code = 652) CALCIUM (BEAKER) 8.7 mg/dL 8.4-10.2 (test code = 697) EGFR (BEAKER) (test 59 mL/min/1.73 ESTIMA LINDA GFR IS code = 1092) sq m NOT ACCURATE CREATININE CLEARANCE IN PREDICTING GLOMERULAR FILTRATION RATE . ESTIMATED GFR I S NOT APPLICABLE FOR DIALYSIS PATIEN TS. CBC W/PLT COUNT & AUTO [id number] 12:26:00 Test Item Value Reference Range Interpretation Comments WHITE BLOOD CELL COUNT (BEAKER) 12.2 K/ L 3.5-10.5 H (test code = 775) RED BLOOD CELL COUNT (BEAKER) 3.74 M/ L 3.93-5.22 L (test code = 761) HEMOGLOBIN (BEAKER) (test code = 10.2 GM/DL 11.2-15.7 L 410) HEMATOCRIT (BEAKER) (test code = 32.4 % 34.1-44.9 L 411) MEAN CORPUSCULAR VOLUME (BEAKER) 86.6 fL 79.4-94.8 (test code = 753) MEAN CORPUSCULAR HEMOGLOBIN 27.3 pg 25.6-32.2 (BEAKER) (test code = 751) MEAN CORPUSCULAR HEMOGLOBIN CONC 31.5 GM/DL 32.2-35.5 L (BEAKER) (test code = 752) RED CELL DISTRIBUTION WIDTH 14.1 % 11.7-14.4 (BEAKER) (test code = 412) PLATELET COUNT (BEAKER) (test 325 K/CU MM 150-450 code = 756) MEAN PLATELET VOLUME (BEAKER) 10.2 fL 9.4-12.3 (test code = 754) NUCLEATED RED BLOOD CELLS 0 /100 WBC 0-0 (BEAKER) (test code = 413) NEUTROPHILS RELATIVE PERCENT 66 % (BEAKER) (test code = 429) LYMPHOCYTES RELATIVE PERCENT 20 % (BEAKER) (test code = 430) MONOCYTES RELATIVE PERCENT 10 % (BEAKER) (test code = 431) EOSINOPHILS RELATIVE PERCENT 2 % (BEAKER) (test code = 432) BASOPHILS RELATIVE PERCENT 0 % (BEAKER) (test code = 437) NEUTROPHILS ABSOLUTE COUNT 8.02 K/ L 1.56-6.13 H (BEAKER) (test code = 670) LYMPHOCYTES ABSOLUTE COUNT 2.39 K/ L 1.18-3.74 (BEAKER) (test code = 414) MONOCYTES ABSOLUTE COUNT (BEAKER) 1.18 K/ L 0.24-0.36 H (test code = 415) EOSINOPHILS ABSOLUTE COUNT 0.27 K/ L 0.04-0.36 (BEAKER) (test code = 416) BASOPHILS ABSOLUTE COUNT (BEAKER) 0.05 K/ L 0.01-0.08 (test code = 417) IMMATURE GRANULOCYTES-RELATIVE 2 % 0-1 H PERCENT (BEAKER) (test code = 2801) [id number] 12:23:00 Test Item Value Reference Range Interpretation Comments PARTIAL THROMBOPLASTIN TIME 29.6 seconds 22.5-36.0 (BEAKER) (test code = 760) PROTHROMBIN [id number] 12:22:00 Test Item Value Reference Range Interpretation Comments PROTIME (BEAKER) (test code = 18.3 seconds 11.9-14.2 H 759) INR (BEAKER) (test code = 370) 1.6 <=5.9 Effective 04/02/2019: PT Reference Range ChangeNew: 11.9-14.2 Previous: 11.7- 14.7RECOMMENDED COUMADIN/WARFARIN INR THERAPY RANGESSTANDARD DOSE: 2.0-3.0 Includes: PROPHYLAXIS for venous thrombosis, systemic embolization; TREATMENT for venous thrombosis and/or pulmonary embolus.HIGH RISK: Target INR is 2.5-3.5 for patients wiht mechanical heart valves.CALCIUM, [id number] 12:11:00 Test Item Value Reference Range Interpretation Comments CALCIUM IONIZED (BEAKER) (test 1.16 mmol/L 1.12-1.27 code = 698) PH, BLOOD (BEAKER) (test code = 7.40 1810) BLOOD GAS, [id number] 12:11:00 Test Item Value Reference Range Interpretation Comments PH ARTERIAL (BEAKER) (test code = 7.41 7.35-7.45 383) PCO2 ARTERIAL (BEAKER) (test code 39 mmHg 35-45 = 384) PO2 ARTERIAL (BEAKER) (test code 64 mmHg 80-90 L = 385) O2 SATURATION ARTERIAL (BEAKER) 93.1 % 96.0-97.0 L (test code = 386) HCO3 ARTERIAL (BEAKER) (test code 24 mmol/L 21-29 = 388) BASE EXCESS ARTERIAL (BEAKER) -0.6 mmol/L -2.0-3.0 (test code = 387) PATIENT TEMPERATURE (BEAKER) 36.6 C (test code = 1818) FIO2 (BEAKER) (test code = 1819) 44.0 % [id number] 11:24:00 Test Item Value Reference Range Interpretation Comments ACTIVATED CLOTTING TIME 120 sec Refe rence Range: 74-137 (BEAKER) (test code = second s, 441) Baseline/TESTED AT [place] [id number] 11:24:00 Test Item Value Reference Range Interpretation Comments ACTIVATED CLOTTING TIME 131 sec Refe rence Range: 74-137 (BEAKER) (test code = second s, 441) Baseline/TESTED AT [address] [address] [id number] 11:24:00 Test Item Value Reference Range Interpretation Comments ACTIVATED CLOTTING TIME 263 sec Refe rence Range: 74-137 (BEAKER) (test code = second s, 441) Baseline/TESTED AT [place] [id number] [facility] [address] [id number] 11:24:00 Test Item Value Reference Range Interpretation Comments ACTIVATED CLOTTING TIME 208 sec Refe rence Range: 74-137 (BEAKER) (test code = second s, 441) Baseline/TESTED AT [facility] [address] [facility] [address] [id number] 11:24:00 Test Item Value Reference Range Interpretation Comments ACTIVATED CLOTTING TIME 191 sec Refe rence Range: 74-137 (BEAKER) (test code = second s, 441) Baseline/TESTED AT [facility] [address] [facility] [address] 0 [id number] 11:24:00 Test Item Value Reference Range Interpretation Comments ACTIVATED CLOTTING TIME 169 sec Refe rence Range: 74-137 (BEAKER) (test code = second s, 441) Baseline/TESTED AT [facility] [address] [facility] [address] 0 POTASSIUM-STAT [id number] 11:16:00 Test Item Value Reference Range Interpretation Comments POTASSIUM (BEAKER) (test code = 2.6 meq/L 3.6-5.5 LL 379) BLOOD GAS, [id number] 11:07:00 Test Item Value Reference Range Interpretation Comments PH ARTERIAL (BEAKER) (test code = 7.27 7.35-7.45 L 383) PCO2 ARTERIAL (BEAKER) (test code 42 mmHg 35-45 = 384) PO2 ARTERIAL (BEAKER) (test code 273 mmHg 80-90 H = 385) O2 SATURATION ARTERIAL (BEAKER) 99.5 % 96.0-97.0 H (test code = 386) HCO3 ARTERIAL (BEAKER) (test code 19 mmol/L 21-29 L = 388) BASE EXCESS ARTERIAL (BEAKER) -8.1 mmol/L -2.0-3.0 L (test code = 387) PATIENT TEMPERATURE (BEAKER) 35.7 C (test code = 1818) FIO2 (BEAKER) (test code = 1819) 60.0 % HGB/HCT (H&H) - STAT [id number] 11:07:00 Test Item Value Reference Range Interpretation Comments HEMOGLOBIN (BEAKER) (test code = 9.5 g/dL 12.0-15.0 L 410) HEMATOCRIT (BEAKER) (test code = 28.0 % 36.0-45.0 L 411) GLUCOSE-STAT [id number] 11:05:00 Test Item Value Reference Range Interpretation Comments GLUCOSE RANDOM (BEAKER) (test code 102 mg/dL 70-110 = 652) SODIUM NA-STAT [id number] 11:05:00 Test Item Value Reference Range Interpretation Comments SODIUM (BEAKER) (test code = 381) 137 meq/L 135-148 POTASSIUM-STAT [id number] 08:56:00 Test Item Value Reference Range Interpretation Comments POTASSIUM (BEAKER) (test code = 2.4 meq/L 3.6-5.5 LL 379) GLUCOSE-STAT [id number] 08:51:00 Test Item Value Reference Range Interpretation Comments GLUCOSE RANDOM (BEAKER) (test code 104 mg/dL 70-110 = 652) SODIUM NA-STAT [id number] 08:51:00 Test Item Value Reference Range Interpretation Comments SODIUM (BEAKER) (test code = 381) 136 meq/L 135-148 BLOOD GAS, [id number] 08:51:00 Test Item Value Reference Range Interpretation Comments PH ARTERIAL (BEAKER) (test code = 7.42 7.35-7.45 383) PCO2 ARTERIAL (BEAKER) (test code 37 mmHg 35-45 = 384) PO2 ARTERIAL (BEAKER) (test code 155 mmHg 80-90 H = 385) O2 SATURATION ARTERIAL (BEAKER) 99.1 % 96.0-97.0 H (test code = 386) HCO3 ARTERIAL (BEAKER) (test code 24 mmol/L 21-29 = 388) BASE EXCESS ARTERIAL (BEAKER) -0.9 mmol/L -2.0-3.0 (test code = 387) PATIENT TEMPERATURE (BEAKER) 36.5 C (test code = 1818) FIO2 (BEAKER) (test code = 1819) 65.0 % CALCIUM, [id number] 08:51:00 Test Item Value Reference Range Interpretation Comments CALCIUM IONIZED (BEAKER) (test 1.04 mmol/L 1.12-1.27 L code = 698) PH, BLOOD (BEAKER) (test code = 7.41 1810) HGB/HCT (H&H) - STAT [id number] 08:51:00 Test Item Value Reference Range Interpretation Comments HEMOGLOBIN (BEAKER) (test code = 10.3 g/dL 12.0-15.0 L 410) HEMATOCRIT (BEAKER) (test code = 30.0 % 36.0-45.0 L 411) [id number] 05:34:00 Test Item Value Reference Range Interpretation Comments MAGNESIUM (BEAKER) 1.9 mg/dL 1.6-2.6 Specimen slightly (test code = 627) hemolyzed [id number] 05:34:00 Test Item Value Reference Range Interpretation Comments PHOSPHORUS (BEAKER) 2.8 mg/dL 2.3-4.7 Specimen slightly (test code = 604) hemolyzed BASIC METABOLIC [id number] 05:34:00 Test Item Value Reference Range Interpretation Comments SODIUM (BEAKER) 137 meq/L 136-145 (test code = 381) POTASSIUM (BEAKER) 3.1 meq/L 3.5-5.1 L Specimen slightly (test code = 379) hemolyzed CHLORIDE (BEAKER) 104 meq/L 98-107 (test code = 382) CO2 (BEAKER) (test 24 meq/L 22-29 code = 355) BLOOD UREA NITROGEN 7 mg/dL 7-21 (BEAKER) (test code = 354) CREATININE (BEAKER) 0.80 mg/dL 0.57-1.25 Specimen slightly (test code = 358) hemolyzed GLUCOSE RANDOM 95 mg/dL 70-105 (BEAKER) (test code = 652) CALCIUM (BEAKER) 8.7 mg/dL 8.4-10.2 (test code = 697) EGFR (BEAKER) (test 71 mL/min/1.73 ESTIMA LINDA GFR IS code = 1092) sq m NOT ACCURATE CREATININE CLEARANCE IN PREDICTING GLOMERULAR FILTRATION RATE . ESTIMATED GFR I S NOT APPLICABLE FOR DIALYSIS PATIEN TS. [id number] 05:23:00 Test Item Value Reference Range Interpretation Comments PARTIAL THROMBOPLASTIN TIME 33.6 seconds 22.5-36.0 (BEAKER) (test code = 760) PROTHROMBIN [id number] 05:22:00 Test Item Value Reference Range Interpretation Comments PROTIME (BEAKER) (test code = 15.1 seconds 11.9-14.2 H 759) INR (BEAKER) (test code = 370) 1.3 <=5.9 Effective 04/02/2019: PT Reference Range ChangeNew: 11.9-14.2 Previous: 11.7- 14.7RECOMMENDED COUMADIN/WARFARIN INR THERAPY RANGESSTANDARD DOSE: 2.0-3.0 Includes: PROPHYLAXIS for venous thrombosis, systemic embolization; TREATMENT for venous thrombosis and/or pulmonary embolus.HIGH RISK: Target INR is 2.5-3.5 for patients wiht mechanical heart valves.CBC (HEMOGRAM ONLY)2019-10-26 05:16:00 Test Item Value Reference Range Interpretation Comments WHITE BLOOD CELL COUNT (BEAKER) 7.5 K/ L 3.5-10.5 (test code = 775) RED BLOOD CELL COUNT (BEAKER) 4.22 M/ L 3.93-5.22 (test code = 761) HEMOGLOBIN (BEAKER) (test code = 11.5 GM/DL 11.2-15.7 410) HEMATOCRIT (BEAKER) (test code = 36.8 % 34.1-44.9 411) MEAN CORPUSCULAR VOLUME (BEAKER) 87.2 fL 79.4-94.8 (test code = 753) MEAN CORPUSCULAR HEMOGLOBIN 27.3 pg 25.6-32.2 (BEAKER) (test code = 751) MEAN CORPUSCULAR HEMOGLOBIN CONC 31.3 GM/DL 32.2-35.5 L (BEAKER) (test code = 752) RED CELL DISTRIBUTION WIDTH 14.1 % 11.7-14.4 (BEAKER) (test code = 412) PLATELET COUNT (BEAKER) (test 328 K/CU MM 150-450 code = 756) MEAN PLATELET VOLUME (BEAKER) 10.7 fL 9.4-12.3 (test code = 754) NUCLEATED RED BLOOD CELLS 0 /100 WBC 0-0 (BEAKER) (test code = 413) [id number] 05:23:00 Test Item Value Reference Range Interpretation Comments MAGNESIUM (BEAKER) 1.9 mg/dL 1.6-2.6 Specimen slightly (test code = 627) hemolyzed [id number] 05:23:00 Test Item Value Reference Range Interpretation Comments PHOSPHORUS (BEAKER) 3.4 mg/dL 2.3-4.7 Specimen slightly (test code = 604) hemolyzed BASIC METABOLIC [id number] 05:23:00 Test Item Value Reference Range Interpretation Comments SODIUM (BEAKER) 132 meq/L 136-145 L (test code = 381) POTASSIUM (BEAKER) 3.8 meq/L 3.5-5.1 Specimen slightly (test code = 379) hemolyzed CHLORIDE (BEAKER) 102 meq/L 98-107 (test code = 382) CO2 (BEAKER) (test 22 meq/L 22-29 code = 355) BLOOD UREA NITROGEN 10 mg/dL 7-21 (BEAKER) (test code = 354) CREATININE (BEAKER) 0.80 mg/dL 0.57-1.25 Specimen slightly (test code = 358) hemolyzed GLUCOSE RANDOM 103 mg/dL 70-105 (BEAKER) (test code = 652) CALCIUM (BEAKER) 8.6 mg/dL 8.4-10.2 (test code = 697) EGFR (BEAKER) (test 71 mL/min/1.73 ESTIMA LINDA GFR IS code = 1092) sq m NOT ACCURATE CREATININE CLEARANCE IN PREDICTING GLOMERULAR FILTRATION RATE . ESTIMATED GFR I S NOT APPLICABLE FOR DIALYSIS PATIRICHARD TS. [id number] 05:08:00 Test Item Value Reference Range Interpretation Comments PARTIAL THROMBOPLASTIN TIME 26.8 seconds 22.5-36.0 (BEAKER) (test code = 760) PROTHROMBIN [id number] 05:07:00 Test Item Value Reference Range Interpretation Comments PROTIME (BEAKER) (test code = 14.7 seconds 11.9-14.2 H 759) INR (BEAKER) (test code = 370) 1.2 <=5.9 Effective 04/02/2019: PT Reference Range ChangeNew: 11.9-14.2 Previous: 11.7- 14.7RECOMMENDED COUMADIN/WARFARIN INR THERAPY RANGESSTANDARD DOSE: 2.0-3.0 Includes: PROPHYLAXIS for venous thrombosis, systemic embolization; TREATMENT for venous thrombosis and/or pulmonary embolus.HIGH RISK: Target INR is 2.5-3.5 for patients wiht mechanical heart valves.CBC (HEMOGRAM ONLY)2019-10-25 04:55:00 Test Item Value Reference Range Interpretation Comments WHITE BLOOD CELL COUNT (BEAKER) 8.5 K/ L 3.5-10.5 (test code = 775) RED BLOOD CELL COUNT (BEAKER) 3.68 M/ L 3.93-5.22 L (test code = 761) HEMOGLOBIN (BEAKER) (test code = 10.2 GM/DL 11.2-15.7 L 410) HEMATOCRIT (BEAKER) (test code = 31.5 % 34.1-44.9 L 411) MEAN CORPUSCULAR VOLUME (BEAKER) 85.6 fL 79.4-94.8 (test code = 753) MEAN CORPUSCULAR HEMOGLOBIN 27.7 pg 25.6-32.2 (BEAKER) (test code = 751) MEAN CORPUSCULAR HEMOGLOBIN CONC 32.4 GM/DL 32.2-35.5 (BEAKER) (test code = 752) RED CELL DISTRIBUTION WIDTH 14.2 % 11.7-14.4 (BEAKER) (test code = 412) PLATELET COUNT (BEAKER) (test 298 K/CU MM 150-450 code = 756) MEAN PLATELET VOLUME (BEAKER) 11.3 fL 9.4-12.3 (test code = 754) NUCLEATED RED BLOOD CELLS 0 /100 WBC 0-0 (BEAKER) (test code = 413) [id number] 04:40:00 Test Item Value Reference Range Interpretation Comments PHOSPHORUS (BEAKER) (test code = 3.3 mg/dL 2.3-4.7 604) [id number] 04:40:00 Test Item Value Reference Range Interpretation Comments MAGNESIUM (BEAKER) (test code = 1.8 mg/dL 1.6-2.6 627) BASIC METABOLIC [id number] 04:40:00 Test Item Value Reference Range Interpretation Comments SODIUM (BEAKER) 132 meq/L 136-145 L (test code = 381) POTASSIUM (BEAKER) 4.0 meq/L 3.5-5.1 (test code = 379) CHLORIDE (BEAKER) 102 meq/L 98-107 (test code = 382) CO2 (BEAKER) (test 21 meq/L 22-29 L code = 355) BLOOD UREA NITROGEN 13 mg/dL 7-21 (BEAKER) (test code = 354) CREATININE (BEAKER) 0.77 mg/dL 0.57-1.25 (test code = 358) GLUCOSE RANDOM 109 mg/dL 70-105 H (BEAKER) (test code = 652) CALCIUM (BEAKER) 9.0 mg/dL 8.4-10.2 (test code = 697) EGFR (BEAKER) (test 74 mL/min/1.73 ESTIMA LINDA GFR IS code = 1092) sq m NOT ACCURATE CREATININE CLEARANCE IN PREDICTING GLOMERULAR FILTRATION RATE . ESTIMATED GFR I S NOT APPLICABLE FOR DIALYSIS PATIEN [id number] 04:14:00 Test Item Value Reference Range Interpretation Comments PARTIAL THROMBOPLASTIN TIME 27.9 seconds 22.5-36.0 (BEAKER) (test code = 760) PROTHROMBIN [id number] 04:13:00 Test Item Value Reference Range Interpretation Comments PROTIME (BEAKER) (test code = 15.0 seconds 11.9-14.2 H 759) INR (BEAKER) (test code = 370) 1.2 <=5.9 Effective 04/02/2019: PT Reference Range ChangeNew: 11.9-14.2 Previous: 11.7- 14.7RECOMMENDED COUMADIN/WARFARIN INR THERAPY RANGESSTANDARD DOSE: 2.0-3.0 Includes: PROPHYLAXIS for venous thrombosis, systemic embolization; TREATMENT for venous thrombosis and/or pulmonary embolus.HIGH RISK: Target INR is 2.5-3.5 for patients wiht mechanical heart valves.CBC (HEMOGRAM ONLY)2019-10-24 04:01:00 Test Item Value Reference Range Interpretation Comments WHITE BLOOD CELL COUNT (BEAKER) 13.0 K/ L 3.5-10.5 H (test code = 775) RED BLOOD CELL COUNT (BEAKER) 3.86 M/ L 3.93-5.22 L (test code = 761) HEMOGLOBIN (BEAKER) (test code = 10.8 GM/DL 11.2-15.7 L 410) HEMATOCRIT (BEAKER) (test code = 32.9 % 34.1-44.9 L 411) MEAN CORPUSCULAR VOLUME (BEAKER) 85.2 fL 79.4-94.8 (test code = 753) MEAN CORPUSCULAR HEMOGLOBIN 28.0 pg 25.6-32.2 (BEAKER) (test code = 751) MEAN CORPUSCULAR HEMOGLOBIN CONC 32.8 GM/DL 32.2-35.5 (BEAKER) (test code = 752) RED CELL DISTRIBUTION WIDTH 14.1 % 11.7-14.4 (BEAKER) (test code = 412) PLATELET COUNT (BEAKER) (test 243 K/CU MM 150-450 code = 756) MEAN PLATELET VOLUME (BEAKER) 11.1 fL 9.4-12.3 (test code = 754) NUCLEATED RED BLOOD CELLS 0 /100 WBC 0-0 (BEAKER) (test code = 413) [id number] 06:08:00 Test Item Value Reference Range Interpretation Comments PHOSPHORUS (BEAKER) (test code = 3.5 mg/dL 2.3-4.7 604) [id number] 06:08:00 Test Item Value Reference Range Interpretation Comments MAGNESIUM (BEAKER) (test code = 2.0 mg/dL 1.6-2.6 627) BASIC METABOLIC [id number] 06:08:00 Test Item Value Reference Range Interpretation Comments SODIUM (BEAKER) 134 meq/L 136-145 L (test code = 381) POTASSIUM (BEAKER) 4.3 meq/L 3.5-5.1 (test code = 379) CHLORIDE (BEAKER) 102 meq/L 98-107 (test code = 382) CO2 (BEAKER) (test 26 meq/L 22-29 code = 355) BLOOD UREA NITROGEN 15 mg/dL 7-21 (BEAKER) (test code = 354) CREATININE (BEAKER) 0.83 mg/dL 0.57-1.25 (test code = 358) GLUCOSE RANDOM 111 mg/dL 70-105 H (BEAKER) (test code = 652) CALCIUM (BEAKER) 8.9 mg/dL 8.4-10.2 (test code = 697) EGFR (BEAKER) (test 68 mL/min/1.73 ESTIMA LINDA GFR IS code = 1092) sq m NOT ACCURATE CREATININE CLEARANCE IN PREDICTING GLOMERULAR FILTRATION RATE . ESTIMATED GFR I S NOT APPLICABLE FOR DIALYSIS PATIEN TS. [id number] 05:53:00 Test Item Value Reference Range Interpretation Comments PARTIAL THROMBOPLASTIN TIME 39.8 seconds 22.5-36.0 H (BEAKER) (test code = 760) PROTHROMBIN [id number] 05:52:00 Test Item Value Reference Range Interpretation Comments PROTIME (BEAKER) (test code = 15.9 seconds 11.9-14.2 H 759) INR (BEAKER) (test code = 370) 1.3 <=5.9 Effective 04/02/2019: PT Reference Range ChangeNew: 11.9-14.2 Previous: 11.7- 14.7RECOMMENDED COUMADIN/WARFARIN INR THERAPY RANGESSTANDARD DOSE: 2.0-3.0 Includes: PROPHYLAXIS for venous thrombosis, systemic embolization; TREATMENT for venous thrombosis and/or pulmonary embolus.HIGH RISK: Target INR is 2.5-3.5 for patients wiht mechanical heart valves.CBC (HEMOGRAM ONLY)2019-10-23 05:35:00 Test Item Value Reference Range Interpretation Comments WHITE BLOOD CELL COUNT (BEAKER) 11.8 K/ L 3.5-10.5 H (test code = 775) RED BLOOD CELL COUNT (BEAKER) 4.19 M/ L 3.93-5.22 (test code = 761) HEMOGLOBIN (BEAKER) (test code = 11.5 GM/DL 11.2-15.7 410) HEMATOCRIT (BEAKER) (test code = 36.1 % 34.1-44.9 411) MEAN CORPUSCULAR VOLUME (BEAKER) 86.2 fL 79.4-94.8 (test code = 753) MEAN CORPUSCULAR HEMOGLOBIN 27.4 pg 25.6-32.2 (BEAKER) (test code = 751) MEAN CORPUSCULAR HEMOGLOBIN CONC 31.9 GM/DL 32.2-35.5 L (BEAKER) (test code = 752) RED CELL DISTRIBUTION WIDTH 14.1 % 11.7-14.4 (BEAKER) (test code = 412) PLATELET COUNT (BEAKER) (test 213 K/CU MM 150-450 code = 756) MEAN PLATELET VOLUME (BEAKER) 11.1 fL 9.4-12.3 (test code = 754) NUCLEATED RED BLOOD CELLS 0 /100 WBC 0-0 (BEAKER) (test code = 413) RAD, CHEST, 1 VIEW, NON [id number] 04:30:00Reason for exam:->Post-opShould this be performed at the bedside?->YesFINAL REPORT Chest one view. Clinical history: Post-op Comparison: None. Technique: A single frontal view of the chest was obtained. Findings:There is a retrocardiac opacity compatible with a moderate size hiatal hernia. The aorta is tortuous and atherosclerotic. The heart is normal in size. There is no focal pulmonary consolidation, pleural effusion or pneumothorax. There is no pulmonary edema. The bony thorax is unremarkable. Impression:Moderate-sized hiatal hernia.Tortuous, atherosclerotic aortaNo focal pulmonary consolidation. Signed: Apple Trivedi MDReport Verified Date/Time: 10/23/2019 04:30:05 URINALYSIS W/ REFLEX URINE [id number] 01:13:00 Test Item Value Reference Range Interpretation Comments COLOR (BEAKER) (test code = 470) Light Yellow CLARITY (BEAKER) (test code = Clear 469) SPECIFIC GRAVITY UA (BEAKER) 1.027 1.001-1.035 (test code = 468) PH UA (BEAKER) (test code = 467) 6.0 5.0-8.0 PROTEIN UA (BEAKER) (test code = Negative Negative 464) GLUCOSE UA (BEAKER) (test code = Negative Negative 365) KETONES UA (BEAKER) (test code = Negative Negative 371) BILIRUBIN UA (BEAKER) (test code Negative Negative = 462) BLOOD UA (BEAKER) (test code = Negative Negative 461) NITRITE UA (BEAKER) (test code = Negative Negative 465) LEUKOCYTE ESTERASE UA (BEAKER) Negative Negative (test code = 466) UROBILINOGEN UA (BEAKER) (test 0.2 mg/dL 0.2-1.0 code = 463) RBC UA (BEAKER) (test code = 1 /HPF 519) WBC UA (BEAKER) (test code = < /HPF 520) SQUAMOUS EPITHELIAL (BEAKER) 1 /HPF (test code = 516) SOURCE(BEAKER) (test code = 2795) CT, CHEST, WITHOUT [id number] 00:48:00FINAL REPORT TECHNIQUE: CT scan of the chest WITHOUT intravenous contrast. Dosemodulation, iterative reconstruction, and/or weight-based adjustment of the mA/kV was utilized to reduce the radiation dose to as low as reasonably achievable. INDICATION: Thoracic aortic aneurysm suspected, initial exam. COMPARISON: None. FINDINGS: ABSENCE OF INTRAVENOUS CONTRAST DECREASES SENSITIVITY FOR DETECTION OF FOCAL LESIONS AND VASCULAR PATHOLOGY. LINES/TUBES: None. LUNGS AND AIRWAYS: No consolidation. There is moderate paraseptal and centrilobular biapical emphysema with parenchymal scarring. Airways are clear. PLEURA: The pleural spaces are clear. HEART AND MEDIASTINUM: No significant mediastinal, hilar, or axillary lymphadenopathy. Moderate atherosclerosis of the aorta and coronary arteries. The ascending thoracic aorta is 4.0 x 3.9 cm as measured at the level of the main pulmonary artery. The descending thoracic aorta is 3.7 x 3.5 cm. SOFT TISSUES AND BONES: Unremarkable. UPPER ABDOMEN: Moderate size hiatal hernia. There is excreted contrast in the partially imaged left renal collecting presumably from a recent contrast enhanced prior exam. IMPRESSION:1. No acute intrathoracic abnormality.2. The ascending thoracic aorta is slightly aneurysmal to 4.0 cm and the descending thoracicaorta is mildly aneurysmal to 3.7 cm. A follow-up examination is suggested every two years.3. Biapical pulmonary emphysema.4. Moderate-sized hiatal hernia. Signed: Mindi Ren MDRort Verified Date/Time: 10/23/2019 00:48:42 HEPATIC FUNCTION [id number] 22:09:00 Test Item Value Reference Range Interpretation Comments TOTAL PROTEIN (BEAKER) (test code = 6.9 gm/dL 6.0-8.3 770) ALBUMIN (BEAKER) (test code = 1145) 3.8 g/dL 3.5-5.0 BILIRUBIN TOTAL (BEAKER) (test code 0.7 mg/dL 0.2-1.2 = 377) BILIRUBIN DIRECT (BEAKER) (test 0.3 mg/dL 0.1-0.5 code = 706) ALKALINE PHOSPHATASE (BEAKER) (test 85 U/L 40-150 code = 346) AST (SGOT) (BEAKER) (test code = 13 U/L 5-34 353) ALT (SGPT) (BEAKER) (test code = 12 U/L 6-55 347) [id number] 22:09:00 Test Item Value Reference Range Interpretation Comments PHOSPHORUS (BEAKER) (test code = 3.3 mg/dL 2.3-4.7 604) [id number] 22:09:00 Test Item Value Reference Range Interpretation Comments MAGNESIUM (BEAKER) (test code = 1.9 mg/dL 1.6-2.6 627) BASIC METABOLIC [id number] 22:09:00 Test Item Value Reference Range Interpretation Comments SODIUM (BEAKER) 131 meq/L 136-145 L (test code = 381) POTASSIUM (BEAKER) 4.2 meq/L 3.5-5.1 (test code = 379) CHLORIDE (BEAKER) 99 meq/L 98-107 (test code = 382) CO2 (BEAKER) (test 24 meq/L 22-29 code = 355) BLOOD UREA NITROGEN 17 mg/dL 7-21 (BEAKER) (test code = 354) CREATININE (BEAKER) 1.06 mg/dL 0.57-1.25 (test code = 358) GLUCOSE RANDOM 122 mg/dL 70-105 H (BEAKER) (test code = 652) CALCIUM (BEAKER) 9.2 mg/dL 8.4-10.2 (test code = 697) EGFR (BEAKER) (test 51 mL/min/1.73 ESTIMA LINDA GFR IS code = 1092) sq m NOT ACCURATE CREATININE CLEARANCE IN PREDICTING GLOMERULAR FILTRATION RATE . ESTIMATED GFR I S NOT APPLICABLE FOR DIALYSIS PATIEN TS. [id number] 22:01:00 Test Item Value Reference Range Interpretation Comments PARTIAL THROMBOPLASTIN TIME 37.2 seconds 22.5-36.0 H (BEAKER) (test code = 760) PROTHROMBIN [id number] 21:52:00 Test Item Value Reference Range Interpretation Comments PROTIME (BEAKER) (test code = 15.6 seconds 11.9-14.2 H 759) INR (BEAKER) (test code = 370) 1.3 <=5.9 Effective 04/02/2019: PT Reference Range ChangeNew: 11.9-14.2 Previous: 11.7- 14.7RECOMMENDED COUMADIN/WARFARIN INR THERAPY RANGESSTANDARD DOSE: 2.0-3.0 Includes: PROPHYLAXIS for venous thrombosis, systemic embolization; TREATMENT for venous thrombosis and/or pulmonary embolus.HIGH RISK: Target INR is 2.5-3.5 for patients wiht mechanical heart valves.CBC W/PLT COUNT & AUTO [id number] 21:45:00 Test Item Value Reference Range Interpretation Comments WHITE BLOOD CELL COUNT (BEAKER) 12.8 K/ L 3.5-10.5 H (test code = 775) RED BLOOD CELL COUNT (BEAKER) 4.42 M/ L 3.93-5.22 (test code = 761) HEMOGLOBIN (BEAKER) (test code = 12.1 GM/DL 11.2-15.7 410) HEMATOCRIT (BEAKER) (test code = 37.9 % 34.1-44.9 411) MEAN CORPUSCULAR VOLUME (BEAKER) 85.7 fL 79.4-94.8 (test code = 753) MEAN CORPUSCULAR HEMOGLOBIN 27.4 pg 25.6-32.2 (BEAKER) (test code = 751) MEAN CORPUSCULAR HEMOGLOBIN CONC 31.9 GM/DL 32.2-35.5 L (BEAKER) (test code = 752) RED CELL DISTRIBUTION WIDTH 14.1 % 11.7-14.4 (BEAKER) (test code = 412) PLATELET COUNT (BEAKER) (test 244 K/CU MM 150-450 code = 756) MEAN PLATELET VOLUME (BEAKER) 11.2 fL 9.4-12.3 (test code = 754) NUCLEATED RED BLOOD CELLS 0 /100 WBC 0-0 (BEAKER) (test code = 413) NEUTROPHILS RELATIVE PERCENT 80 % (BEAKER) (test code = 429) LYMPHOCYTES RELATIVE PERCENT 10 % (BEAKER) (test code = 430) MONOCYTES RELATIVE PERCENT 9 % (BEAKER) (test code = 431) EOSINOPHILS RELATIVE PERCENT 1 % (BEAKER) (test code = 432) BASOPHILS RELATIVE PERCENT 0 % (BEAKER) (test code = 437) NEUTROPHILS ABSOLUTE COUNT 10.26 K/ L 1.56-6.13 H (BEAKER) (test code = 670) LYMPHOCYTES ABSOLUTE COUNT 1.21 K/ L 1.18-3.74 (BEAKER) (test code = 414) MONOCYTES ABSOLUTE COUNT (BEAKER) 1.12 K/ L 0.24-0.36 H (test code = 415) EOSINOPHILS ABSOLUTE COUNT 0.06 K/ L 0.04-0.36 (BEAKER) (test code = 416) BASOPHILS ABSOLUTE COUNT (BEAKER) 0.04 K/ L 0.01-0.08 (test code = 417) IMMATURE GRANULOCYTES-RELATIVE 1 % 0-1 PERCENT (BEAKER) (test code = 2801)
[2023-08-13 12:27] LABS: Absolute Lymphocytes (CBC) 1.4 K/uL (0.7-4.9); Hematocrit 40.5 % (36.0-45.0); Lymphocytes % 21.3 % (15.3-44.8); MCV 86.9 fL (80-100); MPV 8.5 fL (7.6-11.3); Platelets 228 thou/uL (152-406); RBC Red Blood Cell Count 4.66 M/uL (3.86-4.86)
--- NOTE | 2023-08-13 12:42 | RAD REPORT ---
EXAM DESCRIPTION: RADChest Single View08/13/2023 12:36 pm CLINICAL HISTORY: afib COMPARISON: Chest Single View dated 10/22/2019; Chest Single View dated 07/28/2018; Abdomen Angio naresh ed 08/08/2023 TECHNIQUE: Portable AP view of the chest. FINDINGS: The lungs are clear. Chronic bibasilar interstitial changes and/or minimal atelectasis, st able. No pneumothorax or effusion. The cardiomediastinal contours are unremarkable. IMPRESSION: No acute cardiopulmonary process.
[2023-08-13 12:53] LABS: ALT/SGPT 22 U/L (13-56); AST/SGOT 15 U/L (15-37); Albumin 3.4 g/dL (3.4-5.0); Alkaline Phosphatase 63 U/L (45-117); BUN Blood Urea Nitrogen 24 mg/dL (7-18); Bicarbonate 28 mEq/L (21-32); Bilirubin Total 0.3 mg/dL (0.2-1.0); Glomerular Filtration Rate 30 ml/min (=/>90); Glucose Level 113 mg/dL (74-106); Magnesium 2.3 mg/dL (1.6-2.4); Potassium 4.4 mEq/L (3.5-5.1); Protein, Total 7.4 g/dL (6.4-8.2); Sodium Level 140 mEq/L (136-145); Troponin High Sensitivity 7.4 pg/mL (<58.9)
[2023-08-13 12:54] LABS: Bilirubin Direct < 0.1 mg/dL (0-0.2); Bilirubin Indirect, Calculated ND mg/dL (0.2-0.8)
--- NOTE | 2023-08-13 13:26 | ER ---
Nurse's Notes [facility] Name: Jennifer Bejarano Age: 78 yrs Sex: Female : 1945 Arrival Date: 08/13/2023 Time: 11:41 Bed 4 Private MD: Diagnosis: Unspecified atrial fibrillation Presentation: 08/13 12:03 Chief complaint: Patient states: sent by Dr. Oconnor for new onset Afib, rate was in the iw 130's in office. Coronavirus screen: At this time, the client does not indicate any symptoms associated with coronavirus-19. Ebola Screen: Patient negative for fever greater than or equal to 101.5 degrees Fahrenheit, and additional compatible Ebola Virus Disease symptoms Patient denies exposure to infectious person. Patient denies travel to an Ebola-affected area in the 21 days before illness onset. No symptoms or risks identified at this time. Initial Sepsis Screen: Does the patient meet any 2 criteria? No. Patient's initial sepsis screen is negative. Does the patient have a suspected source of infection? No. Patient's initial sepsis screen is negative. Risk Assessment: Do you want to hurt yourself or someone else? Patient reports no desire to harm self or others. Onset of symptoms was August 13, 2023. 12:03 Method Of Arrival: Wheelchair iw 12:03 Acuity: NATASHA 3 iw Historical: - Allergies: 12:04 PENICILLINS; iw - PMHx: 12:04 Anxiety; iw - Immunization history:: Client reports receiving the 2nd dose of the Covid vaccine. - Social history:: Smoking status: Patient reports the use of cigarette tobacco products, smokes one pack cigarettes per day. - Family history:: not pertinent. Screenin:21 [facility] ED Fall Risk Assessment (Adult) History of falling in the last 3 months, ko1 including since admission No falls in past 3 months (0 pts) Confusion or Disorientation No (0 pts) Intoxicated or Sedated No (0 pts) Impaired Gait No (0 pts) Mobility Assist Device Used No (0 pt) Altered Elimination No (0 pt) Score/Fall Risk Level 0 - 2 = Low Risk Oriented to surroundings, Maintained a safe environment, Educated pt \T\ family on fall prevention, incl call for assistance when getting out of bed, Assessed \T\ reinforced patient's understanding of fall precautions, Provided non-skid footwear, Hourly rounding (assess needs \T\ fall precautionary measures) done, Used ambulatory aids as needed (educated on \T\ assisted with), Used gait belt as appropriate. Abuse screen: Denies threats or abuse. Denies injuries from another. Nutritional screening: No deficits noted. Tuberculosis screening: No symptoms or risk factors identified. Assessment: 12:21 General: Appears in no apparent distress. comfortable, Behavior is calm, cooperative, ko1 appropriate for age. Pain: Denies pain. Neuro: No deficits noted. Cardiovascular: Patient's skin is warm and dry. Rhythm is atrial fibrillation. Respiratory: No deficits noted. GI: No deficits noted. : No deficits noted. EENT: No deficits noted. Derm: No deficits noted. Musculoskeletal: No deficits noted. 12:24 Reassessment: patient appears to in a sinus arrhythmia, occasionally looks like bursts ko1 of afib but only briefly. There are PAC's and PVC's as well. 13:34 Reassessment: Patient appears in no apparent distress at this time. No changes from kc6 previously documented assessment. Patient and/or family updated on plan of care and expected duration. Pain level reassessed. Patient is alert, oriented x 3, equal unlabored respirations, skin warm/dry/pink. Vital Signs: 12:03 BP 148 / 88; Pulse 67; Resp 16; Temp 98; Pulse Ox 100% on R/A; Weight 70.76 kg; Height iw 5 ft. 8 in. ; Pain 0/10; 12:24 BP 137 / 75; Pulse 59; Resp 14; Pulse Ox 99% on R/A; ko1 13:34 BP 149 / 75; Pulse 60; Resp 18 S; Pulse Ox 98% on R/A; kc6 13:56 BP 137 / 81; Pulse 68; Resp 16; Pulse Ox 99% ; ko1 12:03 Body Mass Index 23.72 (70.76 kg, 172.72 cm) iw 12:03 Pain Scale: Adult iw ED Course: 11:42 Patient arrived in ED. im 11:43 Dustin Tenorio MD is Attending Physician. rt 11:47 Cyndi Mann, MANISH is Primary Nurse. ko1 12:04 Triage completed. iw 12:04 Arm band placed on. iw 12:19 TSH Sent. ko1 12:19 Basic Metabolic Panel Sent. ko1 12:19 CBC with Diff Sent. ko1 12:19 LFT's Sent. ko1 12:19 Magnesium Sent. ko1 12:19 Troponin HS Sent. ko1 12:21 Patient has correct armband on for positive identification. Bed in low position. Call ko1 light in reach. Side rails up X 1. Provided Education on: na. Client placed on continuous cardiac and pulse oximetry monitoring. NIBP monitoring applied. clinical research monitor on. Door closed. Noise minimized. Lights dimmed. Warm blanket given. 12:21 Inserted saline lock: 22 gauge in left antecubital area, using aseptic technique. Blood ko1 collected. 12:38 XRAY Chest (1 view) In Process Unspecified. EDMS 13:25 Arvind Oconnor MD is Referral Physician. rt 13:57 No provider procedures requiring assistance completed. IV discontinued, intact, ko1 bleeding controlled, No redness/swelling at site. Pressure dressing applied. Administered Medications: No medications were administered Medication: 13:57 VIS not applicable for this client. ko1 Outcome: 13:25 Discharge ordered by . rt 13:57 Discharged to home ambulatory, with family, ko1 13:57 Condition: good 13:57 Discharge instructions given to patient, family, Instructed on discharge instructions, follow up and referral plans. medication usage, Demonstrated understanding of instructions, follow-up care, medications, Prescriptions given X 2, 13:58 Patient left the ED. ko1 Signatures: Dispatcher [employer] EDMS Ramila Mayo RN RN iw Radhika Johnson RN RN kc6 Cyndi Mann RN RN ko1 Dustin Tenorio MD MD rt Vanessa Mathews Corrections: (The following items were deleted from the chart) 12:38 12:24 Reassessment: patient appears to go in and out of afib ko1 ko1
--- NOTE | 2023-08-13 13:26 | EDPHYS ---
Physician Documentation [facility] Name: Jennifer Bejarano Age: 78 yrs Sex: Female : 1945 Arrival Date: 08/13/2023 Time: 11:41 Bed 4 Private MD: ED Physician Dustin Tenorio HPI: 08/13 12:05 This 78 yrs old Female presents to ER via Wheelchair with complaints of AFIB-sent by rt . 12:05 Patient presents to the ED from Dr. Oconnor's office for reported A-fib with RVR. rt Patient states that she was going for a routine checkup, states that she had no symptoms. Patient states that her heart rate was in the 130s and that she was in A-fib with no prior history of A-fib, was sent to the ED for further eval. Denies other acute complaints at this time. Symptoms are moderate severity, no other aggravating elevating factors.. Historical: - Allergies: 12:04 PENICILLINS; iw - PMHx: 12:04 Anxiety; iw - Immunization history:: Client reports receiving the 2nd dose of the Covid vaccine. - Social history:: Smoking status: Patient reports the use of cigarette tobacco products, smokes one pack cigarettes per day. - Family history:: not pertinent. ROS: 12:05 Constitutional: Negative for fever, chills, and weight loss, Cardiovascular: Negative rt for chest pain, palpitations, and edema, Respiratory: Negative for shortness of breath, cough, wheezing, and pleuritic chest pain, Abdomen/GI: Negative for abdominal pain, nausea, vomiting, diarrhea, and constipation, MS/Extremity: Negative for injury and deformity, Skin: Negative for injury, rash, and discoloration, Neuro: Negative for headache, weakness, numbness, tingling, and seizure, Psych: Negative for depression, anxiety, suicide ideation, homicidal ideation, and hallucinations, Exam: 12:05 Constitutional: This is a well developed, well nourished patient who is awake, alert, rt and in no acute distress. Head/Face: Normocephalic, atraumatic. Chest/axilla: Normal chest wall appearance and motion. Nontender with no deformity. No lesions are appreciated. Cardiovascular: Regular rate and rhythm with a normal S1 and S2. No gallops, murmurs, or rubs. Normal PMI, no JVD. No pulse deficits. Respiratory: Lungs have equal breath sounds bilaterally, clear to auscultation and percussion. No rales, rhonchi or wheezes noted. No increased work of breathing, no retractions or nasal flaring. Abdomen/GI: Soft, non-tender, with normal bowel sounds. No distension or tympany. No guarding or rebound. No evidence of tenderness throughout. Skin: Warm, dry with normal turgor. Normal color with no rashes, no lesions, and no evidence of cellulitis. MS/ Extremity: Pulses equal, no cyanosis. Neurovascular intact. Full, normal range of motion. Neuro: Awake and alert, GCS 15, oriented to person, place, time, and situation. Cranial nerves II-XII grossly intact. Motor strength 5/5 in all extremities. Sensory grossly intact. Cerebellar exam normal. Normal gait. Psych: Awake, alert, with orientation to person, place and time. Behavior, mood, and affect are within normal limits. 12:05 ECG was reviewed by the Attending Physician. Vital Signs: 12:03 BP 148 / 88; Pulse 67; Resp 16; Temp 98; Pulse Ox 100% on R/A; Weight 70.76 kg; Height iw 5 ft. 8 in. ; Pain 0/10; 12:24 BP 137 / 75; Pulse 59; Resp 14; Pulse Ox 99% on R/A; ko1 13:34 BP 149 / 75; Pulse 60; Resp 18 S; Pulse Ox 98% on R/A; kc6 13:56 BP 137 / 81; Pulse 68; Resp 16; Pulse Ox 99% ; ko1 12:03 Body Mass Index 23.72 (70.76 kg, 172.72 cm) iw 12:03 Pain Scale: Adult iw MDM: 11:55 Patient medically screened. rt 13:31 Differential Diagnosis A-fib, electrolyte disturbance, thyrotoxicosis. Data reviewed: rt vital signs, nurses notes, lab test result(s), EKG, radiologic studies. Consideration of Admission/Observation Escalation of care including admission/observation considered. Patient is in normal sinus rhythm, asymptomatic in the ED, labs are benign, informed patient of mild elevated creatinine. After discussion with color depositing machine tender, is stable for outpatient care, will start metoprolol, Eliquis.. Management of patient was discussed with the following: Wood Heel Flap Trimmer: Discussed with Dr. Oconnor, he will follow-up the patient in 1 week.. Independent interpretation of the following test(s) in the Emergency Department CT Scan: My interpretation is Low suspicion for pulmonary embolism, CT angiogram not indicated. Counseling: I had a detailed discussion with the patient and/or guardian regarding the historical points, exam findings, and any diagnostic results supporting the discharge/admit diagnosis, lab results, radiology results, the need for outpatient follow up, to return to the emergency department if symptoms worsen or persist or if there are any questions or concerns that arise at home. 08/13 11:56 Order name: Basic Metabolic Panel; Complete Time: 13:11 rt 08/13 11:56 Order name: CBC with Diff rt 08/13 11:56 Order name: LFT's; Complete Time: 13:11 rt 08/13 11:56 Order name: Magnesium; Complete Time: 13:11 rt 08/13 11:56 Order name: Troponin HS; Complete Time: 13:11 rt 08/13 11:56 Order name: TSH; Complete Time: 13:11 rt 08/13 11:56 Order name: XRAY Chest (1 view); Complete Time: 12:43 rt 08/13 11:56 Order name: EKG; Complete Time: 11:56 rt 08/13 11:56 Order name: Cardiac monitoring; Complete Time: 11:58 rt 08/13 11:56 Order name: EKG - Nurse/Tech; Complete Time: 11:58 rt 08/13 11:56 Order name: IV Saline Lock; Complete Time: 12:19 rt 08/13 11:56 Order name: Labs collected and sent; Complete Time: 12:19 rt 08/13 11:56 Order name: O2 Per Protocol; Complete Time: 11:58 rt 08/13 11:56 Order name: O2 Sat Monitoring; Complete Time: 11:58 rt EC:05 Rate is 66 beats/min. Rhythm is regular, Sinus Rhythm with No ectopy, Sinus arrhythmia rt present. QRS [place] is Normal. [place] interval is normal. QRS interval is normal. QT interval is normal. No Q waves. T waves are Normal. No ST changes noted. Interpreted by me. Administered Medications: No medications were administered Disposition Summary: 08/13/23 13:25 Discharge Ordered Notes: Location: Home rt Problem: new rt Symptoms: are resolved rt Condition: Stable rt Diagnosis - Unspecified atrial fibrillation rt Followup: rt - With: Arvind Oconnor MD - When: 1 week - Reason: Followup: rt - With: Emergency Department - When: As needed - Reason: Worsening of condition Discharge Instructions: - Discharge Summary Sheet rt - Atrial Fibrillation rt Forms: - Medication Reconciliation Form rt - Thank You Letter rt - Antibiotic Education rt - Prescription Opioid Use rt - Patient Portal Instructions rt - Leadership Thank You Letter rt Prescriptions: - Eliquis 5 mg Oral tablet - take 1 tablet ORAL route 2 times per day; 60 tablet; Refills: 0, Product rt Selection Permitted - Metoprolol Tartrate 25 mg Oral tablet - take 1 tablet ORAL route 2 times per day with a meal; 60 tablet; Refills: 0, rt Product Selection Permitted Signatures: Dispatcher [employer] Ramila Villanueva, RN RN Dustin Huddleston MD MD rt
[2023-08-13 14:05] VITALS: TEMP 98
[2023-08-13 14:09] VITALS: BP 137/81; O2SAT 99
--- NOTE | 2023-08-14 11:43 | EKG ---
Test Date: 2023-08-13 Test Time: 11:57:37 Food Quality Technician: TAL MEASUREMENT RESULTS: Intervals: Rate: 66 MS: 160 QRSD: 76 QT: 396 QTc: 415 Wells: P: 54 MS: 160 QRS: 32 T: 64 INTERPRETIVE STATEMENTS: Sinus rhythm with marked sinus arrhythmia Otherwise normal ECG Compared to ECG 07/28/2018 10:23:13 No significant changes Electronically Signed On 08-14-23 11:40:47 CDT by Arvind Oconnor
== END 2023-08-13 13:58 | disposition home or self-care (01) ==
LOC: ER 11:41
DX: I48.91 Unspecified atrial fibrillation (principal); F41.9 Anxiety disorder, unspecified; F17.210 Nicotine dependence, cigarettes, uncomplicated; Z88.0 Allergy status to penicillin
CPT/HCPCS: 36415; 71045; 80048; 80076; 83735; 84443; 84484; 85025; 93005; 99284

== ENCOUNTER 2023-12-19 18:40 | Inpatient (IN) | payer OTHER ==
[2023-12-19 19:31] LABS: Absolute Lymphocytes (CBC) 0.8 K/uL (0.7-4.9); Hematocrit 35.4 % (36.0-45.0); Lymphocytes % 8.8 % (15.3-44.8); MCV 85.5 fL (80-100); MPV 8.6 fL (7.6-11.3); Platelets 218 thou/uL (152-406); RBC Red Blood Cell Count 4.14 M/uL (3.86-4.86)
[2023-12-19 19:38] LABS: Specific Gravity 1.023 (1.005-1.030); Urine Bacteria <20 /HPF (<20); Urine Bilirubin NEGATIVE (Negative); Urine Blood Negative (Negative); Urine Clarity Extremely Turbid (Clear); Urine Color Yellow (Yellow); Urine Glucose NEGATIVE (Negative); Urine Mucus 3+ /HPF (None Seen); Urine Protein 1+ (Negative); Urine Urobilinogen 1+ (Normal); Urine WBC Clump Occasional /HPF (None Seen); Urine pH 5.5 (5.0-7.0)
[2023-12-19 19:47] LABS: Bilirubin Total 0.5 mg/dL (0.2-1.0); Protein, Total 7.1 g/dL (6.4-8.2)
--- NOTE | 2023-12-19 20:36 | RAD REPORT ---
EXAM DESCRIPTION: CTAbdomen Pelvis W Contrast - 12/19/2023 8:24 pm CLINICAL HISTORY: Abdominal pain. ABD PAIN COMPARISON: Abdomen Pelvis W Contrast dated 10/22/2019 TECHNIQUE: Biphasic CT imaging of the abdomen and pelvis was performed with 100 ml non-ionic IV cont rast. All CT scans are performed using dose optimization technique as appropriate and may include automated exposure control or mA/KV adjustment according to patient size. FINDINGS: The lung bases are clear.Moderate hiatal hernia. The liver, spleen, pancreas, adrenal glands and kidneys are within normal limits. No bowel obstruction, free air, free fluid or abscess. There is a large infrarenal abdominal aortic a neurysm measuring 8.3 cm present. There is extensive aortoiliac stent material present excluding the aneurysm. The appendix is normal. There is a 9 cm length of sigmoid colon in the left lower quadrant which shows moderate surrounding inflammation. There are several diverticula in the region as well. M ost likely, this represents acute diverticulitis. No abscess is seen. Mild lumbosacral degenerative changes. IMPRESSION: 9 cm length of sigmoid colon demonstrating findings compatible with moderate acute diver ticulitis. No abscess.
--- NOTE | 2023-12-19 21:08 | EDPHYS ---
Physician Documentation [facility] Name: Jennifer Bejarano Age: 78 yrs Sex: Female : 1945 Arrival Date: 12/19/2023 Time: 18:40 Bed 16 Private MD: Martin Soares ED Physician Dustin Tenorio HPI: 12/19 21:06 This 78 yrs old Female presents to ER via Ambulatory with complaints of Abdominal kb Cramping. 21:06 Patient is a 78-year-old female who presents for small, soft bowel movements, abdominal kb pain, malaise and chills that started 4 days ago. States she took a laxative because she thought she was constipated but it just caused abdominal cramps and did not produce a normal bowel movement like she was hoping.. Historical: - Allergies: 18:55 PENICILLINS; ld1 - PMHx: 18:55 Anxiety; ld1 - Immunization history:: Adult Immunizations up to date. - Social history:: Smoking status: Patient denies any tobacco usage or history of. Patient/guardian denies using alcohol. ROS: 20:59 Respiratory: Negative for shortness of breath, cough, wheezing, and pleuritic chest kb pain, 20:59 Constitutional: Positive for fatigue, malaise, 20:59 Abdomen/GI: Positive for abdominal pain, 20:59 All other systems are negative, Exam: 20:59 Constitutional: This is a well developed, well nourished patient who is awake, alert, kb and in no acute distress. Head/Face: Normocephalic, atraumatic. ENT: Moist Mucous membranes Cardiovascular: Regular rate Respiratory: Respirations even and unlabored. No increased work of breathing. Talking in full sentences Skin: Warm, dry with normal turgor. Normal color. MS/ Extremity: Pulses equal, no cyanosis. Neurovascular intact. Full, normal range of motion. Neuro: Awake and alert, GCS 15, oriented to person, place, time, and situation. Moves all extremities. Normal gait. 20:59 Abdomen/GI: Inspection: abdomen appears normal, Bowel sounds: normal, in all quadrants, Palpation: soft, in all quadrants, mild abdominal tenderness, in the left upper quadrant and left lower quadrant, Vital Signs: 18:54 BP 122 / 67; Pulse 68; Resp 18; Temp 97.6(TE); Pulse Ox 97% on R/A; Weight 72.12 kg; ld1 Height 5 ft. 8 in. ; Pain 0/10; 19:28 BP 128 / 80; Pulse 60; Resp 16; Pulse Ox 96% on R/A; jb4 20:52 BP 135 / 57; Pulse 57; Resp 16; Pulse Ox 97% on R/A; jb4 21:30 BP 138 / 82; Pulse 61; Resp 16; Pulse Ox 95% on R/A; jb4 22:30 BP 109 / 54; Pulse 58; Resp 16; Pulse Ox 92% on R/A; jb4 18:54 Body Mass Index 24.18 (72.12 kg, 172.72 cm) ld1 18:54 Pain Scale: Adult ld1 MDM: 18:44 Patient medically screened. kb 20:53 Data reviewed: vital signs, nurses notes. kb 20:53 Differential diagnosis: bowel obstruction, diverticulitis, non-specific abd pain, kb urinary tract infection. Consideration of Admission/Observation Patient was admitted/placed on observation. Escalation of care including admission/observation considered. Management of patient was discussed with the following: Hospitalist: Dr Michael accepts pt for admission. Counseling: I had a detailed discussion with the patient and/or guardian regarding the historical points, exam findings, and any diagnostic results supporting the discharge/admit diagnosis, lab results, radiology results, the need for further work-up and treatment in the hospital. 12/19 18:52 Order name: CBC with Diff; Complete Time: 19:34 kb 12/19 18:52 Order name: CMP; Complete Time: 20:00 kb 12/19 18:52 Order name: Lipase; Complete Time: 20:00 kb 12/19 18:52 Order name: Urinalysis w/ reflexes; Complete Time: 20:09 kb 12/19 20:10 Order name: Urine Culture EDMS 12/19 21:18 Order name: Basic Metabolic Panel EDMS 12/19 21:18 Order name: Basic Metabolic Panel EDMS 12/19 21:18 Order name: Basic Metabolic Panel EDMS 12/19 21:18 Order name: Basic Metabolic Panel EDMS 12/19 21:18 Order name: CBC with Automated Diff EDMS 12/19 21:18 Order name: CBC with Automated Diff EDMS 12/19 21:18 Order name: CBC with Automated Diff EDMS 12/19 21:18 Order name: CBC with Automated Diff EDMS 12/19 18:52 Order name: CT Abd/Pelvis - IV Contrast Only; Complete Time: 20:42 kb 12/19 18:52 Order name: IV Saline Lock; Complete Time: 19:25 kb 12/19 18:52 Order name: Labs collected and sent; Complete Time: 19:25 kb Administered Medications: 21:29 Drug: metroNIDAZOLE IVPB 500 mg 100 ml IVPB at 200 ml/hr once over 30 mins Volume: 100 jb4 ml; Route: IVPB; Rate: 200 ml/hr; Infused Over: 30 mins; Site: left antecubital; 21:29 Drug: NS 0.9% IV 1000 ml IV at 75 ml/hr continuous Route: IV; Rate: 75 ml/hr; Site: jb4 left antecubital; 22:32 Drug: Ciprofloxacin IVPB 400 mg 200 ml IVPB once over 60 mins Volume: 200 ml; Route: jb4 IVPB; Infused Over: 60 mins; Site: left antecubital; Disposition: 12/20 19:58 Co-signature as Attending Physician, Dustin Tenorio MD I reviewed the patient's care rt provided by the Advanced Practice Provider and agree with the diagnosis and treatment plan. Disposition Summary: 12/19/23 21:08 Hospitalization Ordered Notes: Hospitalization Status: Inpatient Admission kb Provider: Mango Michael [facility] kb Condition: Stable kb Problem: new kb Symptoms: are unchanged kb Bed/Room Type: Standard Room Assignment: [id number](12/19/23 21:31) kl Diagnosis - Diverticulitis of intestine, part unspecified, without perforation or abscess kb without bleeding Forms: - Medication Reconciliation Form kb - SBAR form kb - Leadership Thank You Letter kb Signatures: Dispatcher [employer] EDMS Kelley Rodriguez FNP-C FNP-Katrina Flannery RN Myles Edmondson RN RN jb4 Libia Guy RN RN ld1 Dustin Tenorio MD MD rt Ming Barnett Corrections: (The following items were deleted from the chart) 12/19 21:25 21:08 kb ty 21:31 21:25 213 ty kl
--- NOTE | 2023-12-19 21:08 | ER ---
Nurse's Notes [facility] Name: Jennifer Bejarano Age: 78 yrs Sex: Female : 1945 Arrival Date: 12/19/2023 Time: 18:40 Bed 16 Private MD: Martin Soares Diagnosis: Diverticulitis of intestine, part unspecified, without perforation or abscess without bleeding Presentation: 12/19 18:54 Chief complaint: Patient states: Constipation X 4 days. Abdominal bloating and cramping ld1 X 4-5 days. Coronavirus screen: At this time, the client does not indicate any symptoms associated with coronavirus-19. Ebola Screen: No symptoms or risks identified at this time. Initial Sepsis Screen: Does the patient meet any 2 criteria? No. Patient's initial sepsis screen is negative. Does the patient have a suspected source of infection? No. Patient's initial sepsis screen is negative. Risk Assessment: Do you want to hurt yourself or someone else? Patient reports no desire to harm self or others. Onset of symptoms was December 19, 2023. 18:54 Method Of Arrival: Ambulatory ld1 18:54 Acuity: NATASHA 3 ld1 Triage Assessment: 18:55 General: Appears in no apparent distress. uncomfortable, Behavior is calm, cooperative, ld1 appropriate for age. Pain: Denies pain. EENT: No signs and/or symptoms were reported regarding the EENT system. Neuro: Level of Consciousness is awake, alert, obeys commands, Oriented to person, place, time, situation. Cardiovascular: Capillary refill < 3 seconds Patient's skin is warm and dry. Respiratory: Airway is patent Respiratory effort is even, unlabored. GI: Abdomen is round non-distended, Reports lower abdominal pain, constipation, cramping. : No signs and/or symptoms were reported regarding the genitourinary system. Derm: No signs and/or symptoms reported regarding the dermatologic system. Musculoskeletal: No signs and/or symptoms reported regarding the musculoskeletal system. Historical: - Allergies: 18:55 PENICILLINS; ld1 - PMHx: 18:55 Anxiety; ld1 - Immunization history:: Adult Immunizations up to date. - Social history:: Smoking status: Patient denies any tobacco usage or history of. Patient/guardian denies using alcohol. Screenin:27 [facility] ED Fall Risk Assessment (Adult) History of falling in the last 3 months, jb4 including since admission No falls in past 3 months (0 pts) Confusion or Disorientation No (0 pts). Abuse screen: Denies threats or abuse. Nutritional screening: No deficits noted. Tuberculosis screening: No symptoms or risk factors identified. Assessment: 19:27 General: Appears in no apparent distress. comfortable, Behavior is calm, cooperative, jb4 appropriate for age. Pain: Complains of pain in abdomen Pain does not radiate. Pain currently is 0 out of 10 on a pain scale. Quality of pain is described as crampy. Neuro: Level of Consciousness is awake, alert, obeys commands, Oriented to person, place, time, situation. Cardiovascular: Patient's skin is warm and dry. Respiratory: Airway is patent Respiratory effort is even, unlabored, Respiratory pattern is regular, symmetrical. GI: Abdomen is flat, non-distended. : No signs and/or symptoms were reported regarding the genitourinary system. EENT: No signs and/or symptoms were reported regarding the EENT system. Derm: Skin is intact, Skin is pink, warm \T\ dry. Musculoskeletal: Circulation, motion, and sensation intact. Range of motion: intact in all extremities. 20:52 Reassessment: Patient appears in no apparent distress at this time. Patient and/or jb4 family updated on plan of care and expected duration. Pain level reassessed. Patient is alert, oriented x 3, equal unlabored respirations, skin warm/dry/pink. Vital Signs: 18:54 BP 122 / 67; Pulse 68; Resp 18; Temp 97.6(TE); Pulse Ox 97% on R/A; Weight 72.12 kg; ld1 Height 5 ft. 8 in. ; Pain 0/10; 19:28 BP 128 / 80; Pulse 60; Resp 16; Pulse Ox 96% on R/A; jb4 20:52 BP 135 / 57; Pulse 57; Resp 16; Pulse Ox 97% on R/A; jb4 21:30 BP 138 / 82; Pulse 61; Resp 16; Pulse Ox 95% on R/A; jb4 22:30 BP 109 / 54; Pulse 58; Resp 16; Pulse Ox 92% on R/A; jb4 18:54 Body Mass Index 24.18 (72.12 kg, 172.72 cm) ld1 18:54 Pain Scale: Adult ld1 ED Course: 18:42 Patient arrived in ED. ld1 18:42 Martin Soares MD is Private Physician. ld1 18:44 Kelley Rodriguez FNP-C [facility]. kb 18:44 Dustin eTnorio MD is Attending Physician. kb 18:55 Triage completed. ld1 18:55 Arm band placed on right wrist. ld1 19:25 CBC with Diff Sent. jb4 19:25 CMP Sent. jb4 19:25 Lipase Sent. jb4 19:25 Urinalysis w/ reflexes Sent. jb4 19:27 Patient has correct armband on for positive identification. Bed in low position. Call jb4 light in reach. Side rails up X 1. Client placed on continuous cardiac and pulse oximetry monitoring. NIBP monitoring applied. 20:26 CT Abd/Pelvis - IV Contrast Only In Process Unspecified. EDMS 21:07 Mango Michael MD is Hospitalizing Provider. kb 22:41 No provider procedures requiring assistance completed. Patient admitted, IV remains in jb4 place. Administered Medications: 21:29 Drug: metroNIDAZOLE IVPB 500 mg 100 ml IVPB at 200 ml/hr once over 30 mins Volume: 100 jb4 ml; Route: IVPB; Rate: 200 ml/hr; Infused Over: 30 mins; Site: left antecubital; 21:29 Drug: NS 0.9% IV 1000 ml IV at 75 ml/hr continuous Route: IV; Rate: 75 ml/hr; Site: jb4 left antecubital; 22:32 Drug: Ciprofloxacin IVPB 400 mg 200 ml IVPB once over 60 mins Volume: 200 ml; Route: jb4 IVPB; Infused Over: 60 mins; Site: left antecubital; Medication: 19:27 VIS not applicable for this client. jb4 Outcome: 21:08 Decision to Hospitalize by Provider. kb 22:41 Admitted to Tele accompanied by nurse, via wheelchair, room 409, Report called to suad Maame 22:41 Condition: stable 22:41 Discharge instructions given to patient, Instructed on the need for admit, Demonstrated understanding of instructions, 22:58 Patient left the ED. jb4 Signatures: Dispatcher [employer] [facility] Kelley Rodriguez FNP-C FNP-Myles Laboy RN RN [email or web address] Libia Guy, RN RN ld1
[2023-12-19] MEDS ORDERED: ONDANSETRON 4 MG/2 ML VIAL IV PRN (21:11)
[2023-12-19] MEDS ORDERED: ACETAMINOPHEN 325 MG TABLET PO PRN (21:11)
[2023-12-19] MEDS ORDERED: CIPROFLOXACIN 400mg IV 400 MG/200 ML BAG IV ONE (21:13)
[2023-12-19] MEDS ORDERED: METRONIDAZOLE 500mg IVPB 500 MG/100 ML BAG IV ONE (21:13)
[2023-12-19] MEDS ORDERED: NA CHLORIDE 0.9% 1,000 ML ONE (21:13)
--- NOTE | 2023-12-19 21:16 | P.HP ---
Certification for Inpatient Patient admitted to: Inpatient With expected LOS: >2 Midnights Practitioner: I am a practitioner with admitting privileges, knowledge of patient current condition, hospital course, and medical plan of care. Services: Services provided to patient in accordance with Admission requirements found in Title 42 Section 412.3 of the Code of Federal Regulations Patient History Date of Service: 12/20/23 Reason for admission: Abdominal pain, diarrhea. History of Present Illness: 78-year-old female patient with medical history significant for anxiety disorder , hypertension who came to ED with complaint of abdominal pain with associated loose stools for the past 7 days. She also reported fever and chills. She began to have issues with more loose stools after she took a laxative so she decided to come to the ED. In the ED she had a CT of the abdomen and pelvis done that showed diverticulitis so she was admitted for inpatient care. She was started on broad-spectrum antibiotic therapy with Flagyl and ciprofloxacin. Allergies Penicillins Allergy (Verified 12/19/23 22:46) Itching/Hives/Rash Home Medications: ALPRAZolam [Xanax*] 1 tab PO BEDTIME PRN 12/20/23 Amlodipine [Norvasc*] 1 tab PO DAILY 12/20/23 Hydralazine [Apresoline*] 1 tab PO BID 12/20/23 Sertraline [Zoloft*] 1 tab PO DAILY 12/20/23 Review of Systems General: Fever, Chills, Malaise Eyes: Unremarkable ENT: Unremarkable Respiratory: Unremarkable Cardiovascular: Unremarkable Gastrointestinal: Abdominal Pain, Diarrhea Genitourinary: Unremarkable Musculoskeletal: Unremarkable Integumentary: Unremarkable Neurological: Unremarkable Lymphatics: Unremarkable Physical Examination - Physical Exam General: Alert, Oriented x3 HEENT: Atraumatic Neck: Supple Respiratory: Normal air movement Cardiovascular: Regular rate/rhythm, Normal S1 S2 Gastrointestinal: Soft and benign, Tenderness Musculoskeletal: No swelling Neurological: Normal speech, Normal strength at 5/5 x4 extr - Studies Laboratory Data (last 24 hrs) 12/19/23 12/19/23 19:16 19:16 WBC 9.40 Hgb 12.0 Hct 35.4 L Plt Count 218 Sodium 132 L Potassium 4.0 BUN 16 Creatinine 1.25 H Glucose 109 H Total Bilirubin 0.5 AST 12 L ALT 14 Alkaline Phosphatase 74 Lipase 31 Assessment and Plan - Plan Acute diverticulitis: Presently clinical presentation and imaging studies are concerning. We have started empiric antibiotic therapy with ciprofloxacin and Flagyl. Monitor symptomatology closely. Continue as needed pain control with morphine. Will follow cultures for adjustment to antibiotic therapy as needed. Hypertension: Monitor vital signs per unit protocol and continue outpatient antihypertensive medication if criteria is met. Anxiety disorder: Will continue antianxiety medications. Hyponatremia: Sodium is low at 133. Will replete with normal saline infusion and monitor levels on daily labs. Prophylaxis: Lovenox for DVT prophylaxis CODE STATUS: Full code Disposition: We will treat her acute diverticulitis episode and she will be discharged once deemed clinically stable. - Advance Directives Does patient have a Living Will: No Does patient have a Durable POA for Healthcare: No
[2023-12-19 23:15] VITALS: BMI 24.2
[2023-12-19] MEDS: NA CHLORIDE 0.9% 1,000 ML IV SCH (23:26)
[2023-12-20 06:16] LABS: Absolute Lymphocytes (CBC) 1.1 K/uL (0.7-4.9); Hematocrit 36.7 % (36.0-45.0); MCV 85.6 fL (80-100); MPV 9.4 fL (7.6-11.3); Platelets 216 thou/uL (152-406); RBC Red Blood Cell Count 4.29 M/uL (3.86-4.86)
[2023-12-20 06:29] LABS: Potassium 4.4 mEq/L (3.5-5.1)
--- NOTE | 2023-12-20 08:56 | P.PN ---
Date of Service: 12/20/23 Subjective: Reports stomach cramps, feeling run down past few days subjective fever / chills prior to admission reports small loose stool. +flatus. denies UTI symptoms; no n/v/d afebrile ROS: 10 point ROS as noted above, otherwise negative Physical Exam: GEN: Alert, oriented, NAD HEENT: Normal conjunctiva, sclera anicteric, CV: Regular rate and rhythm, no edema Pulm: Nonlabored respirations on room air, clear bilaterally ABD: soft, minimal tenderness, nondistended Neuro: Normal speech, normal affect Problem List: Acute sigmoid diverticulitis Large infrarenal abdominal aortic aneurysm 8.3 cm, s/p AAA repair (2019) Hx of a-fib with RVR Hypertension Anxiety Disorder Acute sigmoid diverticulitis Reports stomach cramps, malaise, subjective fever/chills prior to admission. Patient reports shes never had a colonoscopy before. Discussed with patient and family that she needs to get one in the near future. Likely outpatient. CT abdomen (12/19): moderate acute sigmoid diverticulitis - 9cm in length Continue empiric cipro / flagyl (12/20-) +urinalysis concerning for UTI. Patient denies UTI symptoms. Follow urine culture continue IV fluids PRN analgesics / antiemetics Clear liquids for now Large infrarenal abdominal aortic aneurysm 8.3 cm, s/p AAA repair (2018) Previously seen and transferred from our ED in 2018 to [facility]. s/p AAA repair in 2019 CTA abdomen from August 2023 noted patent aorto bi-iliac stenting in place. 4 cm thoracoabdominal aortic aneurysm containing mod thrombus in ulcerating plaques Hx of a-fib with RVR Hypertension Anxiety Disorder confirm home meds, restart as appropriate VTE: Lovenox Code: Full Dispo: Home, ~2 days
[2023-12-20] MEDS: ENOXAPARIN 40 MG/0.4 ML SQ SCH (08:58)
[2023-12-20] MEDS: CIPROFLOXACIN 400mg IV 400 MG/200 ML BAG IV SCH (08:58)
[2023-12-20] MEDS: METRONIDAZOLE 500mg IVPB 500 MG/100 ML BAG IV SCH (08:58)
[2023-12-21] MEDS: NA CHLORIDE 0.9% 1,000 ML IV SCH (00:44)
[2023-12-21 06:19] LABS: Absolute Lymphocytes (CBC) 1.2 K/uL (0.7-4.9); Lymphocytes % 17.1 % (15.3-44.8); MCV 85.7 fL (80-100); MPV 9.3 fL (7.6-11.3); Platelets 229 thou/uL (152-406); RBC Red Blood Cell Count 4.32 M/uL (3.86-4.86)
[2023-12-21 06:37] LABS: Magnesium 1.9 mg/dL (1.6-2.4); Potassium 3.7 mEq/L (3.5-5.1)
--- NOTE | 2023-12-21 08:07 | P.PN ---
Date of Service: 12/21/23 Subjective: Doesn't feel much improvement now reports "bladder pain" in lower abdomen while urinating encouraged to ambulate as tolerated no BM yet, +flatus afebrile ROS: 10 point ROS as noted above, otherwise negative Physical Exam: GEN: Alert, oriented, NAD HEENT: Normal conjunctiva, sclera anicteric, CV: Regular rate and rhythm, no edema Pulm: Nonlabored respirations on room air, clear bilaterally ABD: soft, minimal tenderness, nondistended Neuro: Normal speech, normal affect Problem List: Acute sigmoid diverticulitis Large infrarenal abdominal aortic aneurysm 8.3 cm, s/p AAA repair (2018) Hx of a-fib with RVR Hypertension Anxiety Disorder Acute sigmoid diverticulitis Reports stomach cramps, malaise, subjective fever/chills prior to admission. Patient reports shes never had a colonoscopy before. Discussed with patient and family that she needs to get one in the near future. Likely outpatient. CT abdomen (12/19): moderate acute sigmoid diverticulitis - 9cm in length Continue empiric cipro / flagyl (12/20-) +urinalysis concerning for UTI. now reports lower abdominal pain when urinating (12/21) urine cx (12/19): prelim mixed sallie. between 10k-100k CFU/ML continue IV fluids; decreased 12/20 PRN analgesics / antiemetics Full liquids for now Large infrarenal abdominal aortic aneurysm 8.3 cm, s/p AAA repair (2018) Previously seen and transferred from our ED in 2018 to [facility]. s/p AAA repair in 2019 CTA abdomen from August 2023 noted patent aorto bi-iliac stenting in place. 4 cm thoracoabdominal aortic aneurysm containing mod thrombus in ulcerating plaques Hx of a-fib with RVR Hypertension Anxiety Disorder confirm home meds, restart as appropriate VTE: Lovenox Code: Full Dispo: Home, ~1 -2 day Pending final cx results, pain improves , and BM
[2023-12-22] MEDS: SERTRALINE HCL 100 MG TAB PO SCH (07:50)
--- NOTE | 2023-12-22 09:19 | P.PN ---
Date of Service: 12/22/23 Subjective: Feels ~same as yesterday. Doesn't feel anything is worse. Doesn't feel bloated discomfort / pain when urinating improving Ambulating. no BM yet. +flatus tolerating diet afebrile ROS: 10 point ROS as noted above, otherwise negative Physical Exam: GEN: Alert, oriented, NAD HEENT: Normal conjunctiva, sclera anicteric, CV: Regular rate and rhythm, no edema Pulm: Nonlabored respirations on room air, clear bilaterally ABD: soft, minimal tenderness, nondistended Neuro: Normal speech, normal affect Problem List: Acute sigmoid diverticulitis Gram negative bacteriuria mild SILVANO, pre-renal; likely secondary to dehydration, resolved Large infrarenal abdominal aortic aneurysm 8.3 cm, s/p AAA repair (2018) Hx of a-fib with RVR Hypertension Anxiety Disorder Acute sigmoid diverticulitis Gram negative bacteriuria Reports stomach cramps, malaise, subjective fever/chills prior to admission. Patient reports shes never had a colonoscopy before. Discussed with patient and family that she needs to get one in the near future. Likely outpatient. CT abdomen (12/19): moderate acute sigmoid diverticulitis - 9cm in length Continue empiric cipro / flagyl (12/20-) urine cx (12/19): prelim 2+ GNR. dc IV fluids today PRN analgesics / antiemetics Full liquids for now mild SILVANO, pre-renal; likely secondary to dehydration, resolved IV fluids dc'd 12/22 Continue to monitor renal function resolved Large infrarenal abdominal aortic aneurysm 8.3 cm, s/p AAA repair (2018) Previously seen and transferred from our ED in 2018 to [facility]. s/p AAA repair in 2019 CTA abdomen from August 2023 noted patent aorto bi-iliac stenting in place. 4 cm thoracoabdominal aortic aneurysm containing mod thrombus in ulcerating pl aques Hx of a-fib with RVR Hypertension Anxiety Disorder confirm home meds, restart as appropriate VTE: Lovenox Code: Full Dispo: Home, ~1 day Pending final cx results, pain improves, and BM
[2023-12-22 09:28] VITALS: O2SAT 95
[2023-12-22 09:41] LABS: Absolute Lymphocytes (CBC) 0.9 K/uL (0.7-4.9); Hematocrit 35.8 % (36.0-45.0); Lymphocytes % 14.5 % (15.3-44.8); MCV 85.5 fL (80-100); MPV 9.1 fL (7.6-11.3); Platelets 240 thou/uL (152-406); RBC Red Blood Cell Count 4.19 M/uL (3.86-4.86)
[2023-12-22 10:06] LABS: Potassium 3.5 mEq/L (3.5-5.1)
[2023-12-23 07:14] LABS: Hematocrit 35.1 % (36.0-45.0); MCV 85.4 fL (80-100); Platelets 228 thou/uL (152-406); RBC Red Blood Cell Count 4.11 M/uL (3.86-4.86)
[2023-12-23 07:28] LABS: Magnesium 1.9 mg/dL (1.6-2.4)
--- NOTE | 2023-12-23 08:10 | P.PN ---
Date of Service: 12/23/23 Subjective: Feeling ok, no pain, no n/v, tolerating liquids minimal appetite. no BM yet, +some flatus discomfort when urinating resolved yesterday afebrile ROS: 10 point ROS as noted above, otherwise negative Physical Exam: GEN: Alert, oriented, NAD HEENT: Normal conjunctiva, sclera anicteric CV: Regular rate and rhythm, no edema Pulm: Non-labored respirations on room air, clear bilaterally ABD: soft, nontender, nondistended Neuro: Normal speech, normal affect Problem List: Acute sigmoid diverticulitis Acute Cystitis, E. coli functional Constipation mild SILVANO, pre-renal; secondary to dehydration, resolved Large infrarenal abdominal aortic aneurysm 8.3 cm, s/p AAA repair (2018); chronic Hx of a-fib with RVR Hypertension Anxiety Disorder Acute sigmoid diverticulitis Acute Cystitis, E. coli Functional Constipation Reports stomach cramps, malaise, subjective fever/chills prior to admission. Patient reports shes never had a colonoscopy before. Discussed with patient and family that she needs to get one in the near future. Likely outpatient. CT abdomen (12/19): moderate acute sigmoid diverticulitis - 9cm in length Continue empiric cipro / flagyl (12/20-) for diverticulitis urine cx (12/19): E. coli penicillin allergy noted on chart. she is unsure on reaction, she was told had reaction as a child. states she thinks she took an oral penicillin antibiotic of her daughters by mistake a few years ago and caused some diarrhea uncertain allergy status. Will discuss further risks/benefits. Patient is currently asymptomatic in regards to UTI symptoms. Will discuss with patient and make decision together, and monitor KUB (12/23): non-obstructive bowel gas pattern start stool softener encourage ambulation avoid laxatives/stimulants to minimize complications/risk of perforation discussed risks, patient would like to try more than liquids, but not much; will advance to soft foods 12/23, adviced not to overdo it today IV fluids dc'd 12/22 PRN analgesics / antiemetics if any new symptoms / worsens, repeat CT mild SILVANO, pre-renal; likely secondary to dehydration, resolved IV fluids dc'd 12/22 Continue to monitor renal function resolved Large infrarenal abdominal aortic aneurysm 8.3 cm, s/p AAA repair (2018) Previously seen and transferred from our ED in 2019 to [facility]. s/p AAA repair in 2019 CTA abdomen from August 2023 noted patent aorto bi-iliac stenting in place. 4 cm thoracoabdominal aortic aneurysm containing mod thrombus in ulcerating plaques stable Hx of a-fib with RVR Hypertension Anxiety Disorder confirm home meds, restart as appropriate VTE: Lovenox Code: Full Dispo: Home, ~1 day Pending has BM, remains afebrile
--- NOTE | 2023-12-23 09:34 | RAD REPORT ---
EXAM DESCRIPTION: RAD - Abdomen 1 View (KUB) - 12/23/2023 9:19 am CLINICAL HISTORY: diverticulitis, no BM in several days COMPARISON: No comparisons FINDINGS: Nonobstructive bowel gas pattern. No acute osseous abnormality.Visualized lungs are unrema rkable.No abnormal calcifications. Aortoiliac stent graft. IMPRESSION: Nonobstructive bowel gas pattern.
[2023-12-23] MEDS: DOCUSATE NA 100 MG CAP PO SCH (10:55)
[2023-12-24 06:30] LABS: Absolute Lymphocytes (CBC) 1.1 K/uL (0.7-4.9); Hematocrit 35.4 % (36.0-45.0); Lymphocytes % 19.6 % (15.3-44.8); MCV 85.4 fL (80-100); MPV 8.4 fL (7.6-11.3); Platelets 266 thou/uL (152-406); RBC Red Blood Cell Count 4.15 M/uL (3.86-4.86)
[2023-12-24 06:33] LABS: Potassium 4.7 mEq/L (3.5-5.1)
[2023-12-24 08:33] VITALS: BP 139/64; TEMP 97.6
--- NOTE | 2023-12-24 09:12 | P.DS ---
Admission Date: 12/19/23 Discharge Date: 12/24/23 Disposition: ROUTINE DISCHARGE Discharge Condition: GOOD Reason for Admission: Abdominal pain, diarrhea. Brief History of Present Illness: 78 yo F, PMH: anxiety disorder, hypertension Patient presented to ED with complaint of abdominal pain with associated loose stools for the past 7 days. She also reported fever and chills. She began to have issues with more loose stools after she took a laxative so she decided to come to the ED. In the ED she had a CT of the abdomen and pelvis done that showed diverticulitis so she was admitted for inpatient care. She was started on broad-spectrum antibiotic therapy with Flagyl and ciprofloxacin. Hospital Course: Problem List: Acute sigmoid diverticulitis Acute Cystitis, E. coli functional Constipation mild SILVANO, pre-renal; secondary to dehydration, resolved Large infrarenal abdominal aortic aneurysm 8.3 cm, s/p AAA repair (2019); chronic Hx of a-fib with RVR Hypertension Anxiety Disorder Patient presented with stomach cramps, malaise, subjective fever/chills. Patient was found to have moderate acute sigmoid diverticulitis - 9cm in length seen on CT abdomen on admission. Patient was medically managed with antibiotics, analgesics, fluids, and bowel rest.. No surgical intervention warranted this hospitalizaiton. Patient received ~4 days of IV cipro / flagyl throughout hospitalization. She was monitored until return of bowel function. She remained afebrile without leukocytosis throughout hospitalization. Recommend continue with soft foods for 1 week and slowly advance back to normal. Discussed with patient that she should follow up with her PCP / establish care with GI to get a colonoscopy in the near future for further evaluation. Patient was feeling better, remained afebrile without leukocytosis throughout hospitalization, pain improved, and was deemed stable for discharge home. Patient tolerating regular diet on day of discharge without issues. Patient is to complete 10 more days of cipro / flagyl on discharge for a total of 2 weeks of antibiotic coverage. During her hospitalization, patient reported some burning sensation / discomfort when urinating. Urine culture grew E. coli, resistant to cipro / levaquin / bactrim. E. coli was suspectible to augmentin however patient noted to have a penicillin allergy. Patient's symptoms resolved and improved on cipro / flagyl, and urine culture was between 10k-100k CFU/ml. Briefly discussed with ID, and recommended 3 days of Bactrim in addition to cipro/flagyl. Medications: ciprofloxacin and flagyl for 10 more days Bactrim x 3 days Okay to take over the counter probiotic while on antibiotic Follow up: PCP 3-5 days GI in near future for colonoscopy Physical Exam: GEN: Alert, oriented, NAD HEENT: Normal conjunctiva, sclera anicteric CV: Regular rate and rhythm, no edema Pulm: Non-labored respirations on room air, clear bilaterally ABD: soft, nontender, nondistended Neuro: Normal speech, normal affect Vital Signs/Physical Exam: Temp Pulse Resp BP Pulse Ox 97.6 F 58 17 139/64 95 12/24/23 08:00 12/24/23 08:00 12/24/23 08:00 12/24/23 08:00 12/24/23 08:00 Laboratory Data at Discharge: WBC 5.40 thou/uL (4.3-10.9) 12/24/23 05:40 Hgb 11.9 g/dL (12.0-15.0) L 12/24/23 05:40 Hct 35.4 % (36.0-45.0) L 12/24/23 05:40 Plt Count 266 thou/uL (152-406) 12/24/23 05:40 Sodium 138 mEq/L (136-145) 12/24/23 05:40 Potassium 4.7 mEq/L (3.5-5.1) D 12/24/23 05:40 BUN 11 mg/dL (7-18) 12/24/23 05:40 Creatinine 0.99 mg/dL (0.55-1.02) 12/24/23 05:40 Glucose 111 mg/dL (74-106) H 12/24/23 05:40 Magnesium 2.0 mg/dL (1.6-2.4) 12/24/23 05:40 Total Bilirubin 0.5 mg/dL (0.2-1.0) 12/19/23 19:16 AST 12 U/L (15-37) L 12/19/23 19:16 ALT 14 U/L (13-56) 12/19/23 19:16 Alkaline Phosphatase 74 U/L (45-117) 12/19/23 19:16 Lipase 31 U/L (13-75) 12/19/23 19:16 Home Medications: ALPRAZolam [Xanax*] 1 tab PO BEDTIME PRN 12/20/23 Amlodipine [Norvasc*] 1 tab PO DAILY 12/20/23 Hydralazine [Apresoline*] 1 tab PO BID 12/20/23 Sertraline [Zoloft*] 1 tab PO DAILY 12/20/23 Ciprofloxacin HCl [Cipro] 500 mg PO BID 10 Days #20 tab 12/24/23 Smz./Tmp. [Bactrim Ds 800 MG/160 MG] 1 tab PO BID 3 Days #6 tab 12/24/23 metroNIDAZOLE [Flagyl] 500 mg PO Q8H 10 Days #30 tab 12/24/23 New Medications: Smz./Tmp. [Bactrim Ds 800 MG/160 MG] 1 tab PO BID 3 Days #6 tab Ciprofloxacin HCl [Cipro] 500 mg PO BID 10 Days #20 tab metroNIDAZOLE [Flagyl] 500 mg PO Q8H 10 Days #30 tab Physician Discharge Instructions: Patient presented with stomach cramps, malaise, subjective fever/chills. Patient was found to have moderate acute sigmoid diverticulitis - 9cm in length seen on CT abdomen on admission. Patient was medically managed with antibiotics, analgesics, fluids, and bowel rest.. No surgical intervention warranted this hospitalizaiton. Patient received ~4 days of IV cipro / flagyl throughout hospitalization. She was monitored until return of bowel function. She remained afebrile without leukocytosis throughout hospitalization. Recommend continue with soft foods for 1 week and slowly advance back to normal. Discussed with patient that she should follow up with her PCP / establish care with GI to get a colonoscopy in the near future for further evaluation. Patient was feeling better, remained afebrile without leukocytosis throughout hospitalization, pain improved, and was deemed stable for discharge home. Patient tolerating regular diet on day of discharge without issues. Patient is to complete 10 more days of cipro / flagyl on discharge for a total of 2 weeks of antibiotic coverage. During her hospitalization, patient reported some burning sensation / discomfort when urinating. Urine culture grew E. coli, resistant to cipro / levaquin / bactrim. E. coli was suspectible to augmentin however patient noted to have a penicillin allergy. Patient's symptoms resolved and improved on cipro / flagyl, and urine culture was between 10k-100k CFU/ml. Briefly discussed with ID, and recommended 3 days of Bactrim in addition to cipro/flagyl. Medications: ciprofloxacin and flagyl for 10 more days Bactrim x 3 days Okay to take over the counter probiotic while on antibiotic Follow up: PCP 3-5 days GI in near future for colonoscopy Followup: Martin Soares MD [Primary Care Provider] - Time spent managing pt's care (in minutes): 45
[2023-12-24] MEDS: SMZ./TMP. 800/160 MG TABLET PO SCH (10:05)
== END 2023-12-24 10:27 | disposition home or self-care (01) | DRG 392 ==
LOC: ER 18:40 → 4TH 21:11
PROVIDERS: ADMIT Internal Medicine Nephrology; ATTEND Hospitalist
DX: K57.32 Diverticulitis of large intestine without perforation or abscess without bleeding (principal); E87.1 Hypo-osmolality and hyponatremia; N17.9 Acute kidney failure, unspecified; N30.00 Acute cystitis without hematuria; I10 Essential (primary) hypertension; F41.9 Anxiety disorder, unspecified; K59.04 Chronic idiopathic constipation; E86.0 Dehydration; I48.91 Unspecified atrial fibrillation; I71.43 Infrarenal abdominal aortic aneurysm, without rupture; B96.20 Unspecified Escherichia coli [E. coli] as the cause of diseases classified elsewhere; Z88.0 Allergy status to penicillin; Z79.01 Long term (current) use of anticoagulants; Z79.899 Other long term (current) drug therapy
CPT/HCPCS: 36415; 74018; 74177; 80048; 80053; 81001; 83690; 83735; 85025; 85027; 87077; 87086; 87088; 87186; 96374; 96375; 99285; J0744; J1650; J7030; Q9967

== ENCOUNTER 2024-10-23 15:55 | Emergency (ER) | payer OTHER ==
--- NOTE | 2024-10-23 17:21 | RAD REPORT ---
Procedure: Chest Single View HISTORY: Hypotension COMPARISON: 2022 FINDINGS: Vague right upper lobe opacity. Left lung appears clear of acute infiltrate. Lungs are hyperaerated. No significant pleural effusion noted. The heart is mildly enlarged.. IMPRESSION: Vague right upper lobe opacity may represent a combination of chronic changes and superimposition of vessels and ribs. A worrisome abnormality is considered less likely. Follow-up chest x-ray in 3 months recommended for reevaluation
[2024-10-23 17:40] LABS: ALT/SGPT 23 U/L (13-56); AST/SGOT 21 U/L (15-37); Absolute Eosinophils 0.1 K/uL (0-0.5); Absolute Lymphocytes (CBC) 1.3 K/uL (0.7-4.9); Absolute Monocytes 0.7 K/uL (0.1-1.3); Absolute Neutrophil 3.5 K/uL (1.8-8.0); Albumin 3.5 g/dL (3.4-5.0); Albumin/Globulin Ratio 0.9 (1.1-1.8); Alkaline Phosphatase 72 U/L (45-117); Anion Gap 7.7 mEq/L (5.0-15.0); BUN Blood Urea Nitrogen 27 mg/dL (7-18); Basophils % 0.5 % (0-1.3); Bicarbonate 25 mEq/L (21-32); Bilirubin Total 0.2 mg/dL (0.2-1.0); Eosinophils % 0.9 % (0-4.4); Globulin 3.7 g/dL (2.3-3.5); Glomerular Filtration Rate 45 ml/min (=/>90); Glucose Level 89 mg/dL (74-106); Hematocrit 38.3 % (36.0-45.0); Hemoglobin 12.5 g/dL (12.0-15.0); Lymphocytes % 22.8 % (15.3-44.8); MCH 28.6 pg (27.0-35.0); MCHC 32.5 g/dL (32.0-36.0); MPV 9.3 fL (7.6-11.3); Magnesium 2.2 mg/dL (1.6-2.4); Monocytes % 12.7 % (3.3-12.3); NT PRO-BNP 323 pg/mL (<450); Neutrophils % 63.1 % (41.7-73.7); Platelets 196 thou/uL (152-406); Potassium 3.7 mEq/L (3.5-5.1); Protein, Total 7.2 g/dL (6.4-8.2); RBC Red Blood Cell Count 4.35 M/uL (3.86-4.86); Red Cell Distribution Width 14.2 % (12.1-15.2); Sodium Level 134 mEq/L (136-145); Troponin High Sensitivity 8.7 pg/mL (<58.9)
[2024-10-23 17:41] LABS: Protime INR 1.07
[2024-10-23 17:58] LABS: Bilirubin Direct < 0.2 mg/dL (0-0.2)
--- NOTE | 2024-10-23 19:14 | RAD REPORT ---
EXAM: CTA of the chest, abdomen and pelvis HISTORY: Chest and abdominal pain COMPARISON: 2022 CT abdomen and December 2023 CT chest and abdomen TECHNIQUE: Multiple contiguous axial images were obtained a CTA of the chest and abdomen with contras t per aortic dissection protocol. Sagittal and coronal 3-D MIP reformats were performed. 100 cc Isovue-370 administered intravenously.Automated exposure control, adjustment of the mA and kV accordi ng to the patient size, and iterative reconstruction. Unless otherwise specified, incidental findings do not require dedicated imaging follow-up. FINDINGS: No aortic dissection Descending thoracic aortic aneurysm containing moderate thrombus and ulcerated plaques unchanged. The transverse diameter 4 cm. Thoracoabdominal aortic aneurysm has a transverse diameter of 4.2 cm. On the prior exam it measured 4 .1 cm. It contains a moderate amount of thrombus. Below the level of the renal arteries and aortic biiliac stent has been placed into a very large aort ic aneurysm. The stent is patent. There is no para-aortic hematoma. Celiac, SMA and KRZYSZTOF do not demonstrate a significant abnormality. Mild to moderate plaque renal arteries. COPD Liver, spleen, pancreas, adrenals, kidneys and bladder do not demonstrate a significant abnormality No evidence of diverticulitis. Normal appendix. No adnexal mass. [id number] hiatal hernia 2 cm splenic arterial aneurysm unchanged IMPRESSION: No evidence of an aortic dissection Thoracoabdominal aortic aneurysm 4.2 cm. Aorto biiliac stent within a very large abdominal aortic aneurysm. The stent is patent. No periaortic hematoma 2 cm splenic arterial aneurysm unchanged
--- NOTE | 2024-10-23 19:22 | EDPHYS ---
Physician Documentation [facility] Name: Jennifer Bejarano Age: 79 yrs Sex: Female : 1945 Arrival Date: 10/23/2024 Time: 15:55 Bed 14 Private MD: ED Physician Enoch Cruz HPI: 10/23 17:26 This 79 yrs old Female presents to ER via Wheelchair with complaints of Back Pain, sp3 General Weakness. 17:26 79-year-old female with a history of prior AAA status post stent repair, hypertension, sp3 anxiety now presents to the ED with chief complaint generalized weakness and low blood pressure of "108". Patient states that her physicians have told her she needs to maintain a blood pressure of 130 systolic due to her kidney disease. She denies any other symptoms including headache, fever, URI symptoms, neck pain, chest pain, shortness of breath, abdominal pain, vomiting, diarrhea, syncope, near syncope, rash, bleeding or any other signs or symptoms on ROS at this time. She does states she has mild mid back pain which is new over the last week or 2. No trauma reported.. Historical: - Allergies: 16:22 PENICILLINS; db - PMHx: 16:22 Anxiety; Hypertensive disorder; db - Immunization history:: Adult Immunizations unknown. - Infectious Disease History:: Denies. - Social history:: Smoking status: Patient reports the use of cigarette tobacco products, smokes one pack cigarettes per day. ROS: 17:27 Constitutional: Negative for fever, chills, and weight loss, Eyes: Negative for injury, sp3 pain, redness, and discharge, Neck: Negative for injury, pain, and swelling, Cardiovascular: Negative for chest pain, palpitations, and edema, Respiratory: Negative for shortness of breath, cough, wheezing, and pleuritic chest pain, Abdomen/GI: Negative for abdominal pain, nausea, vomiting, diarrhea, and constipation, : Negative for injury, bleeding, discharge, and swelling, MS/Extremity: Negative for injury and deformity, Skin: Negative for injury, rash, and discoloration, Neuro: Negative for headache, weakness, numbness, tingling, and seizure, Psych: Negative for depression, anxiety, suicide ideation, homicidal ideation, and hallucinations, Allergy/Immunology: Negative for hives, rash, and allergies, Endocrine: Negative for neck swelling, polydipsia, polyuria, polyphagia, and marked weight changes, Hematologic/Lymphatic: Negative for swollen nodes, abnormal bleeding, and unusual bruising, 17:27 All other systems are negative, Exam: 17:27 Constitutional: This is a well developed, well nourished patient who is awake, alert, sp3 and in no acute distress. Head/Face: Normocephalic, atraumatic. Eyes: Pupils equal round and reactive to light, extra-ocular motions intact. Lids and lashes normal. Conjunctiva and sclera are non-icteric and not injected. Cornea within normal limits. Periorbital areas with no swelling, redness, or edema. Neck: Trachea midline, no thyromegaly or masses palpated, and no cervical lymphadenopathy. Supple, full range of motion without nuchal rigidity, or vertebral point tenderness. No Meningismus. Chest/axilla: Normal chest wall appearance and motion. Nontender with no deformity. No lesions are appreciated. Cardiovascular: Regular rate and rhythm with a normal S1 and S2. No gallops, murmurs, or rubs. Normal PMI, no JVD. No pulse deficits. Respiratory: Lungs have equal breath sounds bilaterally, clear to auscultation and percussion. No rales, rhonchi or wheezes noted. No increased work of breathing, no retractions or nasal flaring. Abdomen/GI: Soft, non-tender, with normal bowel sounds. No distension or tympany. No guarding or rebound. No evidence of tenderness throughout. Back: No spinal tenderness. No costovertebral tenderness. Full range of motion. Skin: Warm, dry with normal turgor. Normal color with no rashes, no lesions, and no evidence of cellulitis. MS/ Extremity: Pulses equal, no cyanosis. Neurovascular intact. Full, normal range of motion. Neuro: Awake and alert, GCS 15, oriented to person, place, time, and situation. Cranial nerves II-XII grossly intact. Motor strength 5/5 in all extremities. Sensory grossly intact. Cerebellar exam normal. Normal gait. Psych: Awake, alert, with orientation to person, place and time. Behavior, mood, and affect are within normal limits. 17:27 ECG was reviewed by the Attending Physician. EKG demonstrates normal sinus rhythm at 60 bpm with normal intervals, normal QRS, multiple PVCs and nonspecific ST/T changes without evidence of acute ischemia. Vital Signs: 16:21 BP 108 / 60; Pulse 62; Resp 18; Temp 97.8(O); Pulse Ox 99% ; Weight 74.84 kg; Height 5 db ft. 8 in. ; 17:52 BP 135 / 64; Pulse 57; Resp 18; Pulse Ox 96% ; ko1 18:39 BP 144 / 61; Pulse 61; Resp 15; Pulse Ox 96% ; ko1 18:55 BP 134 / 76; Pulse 62; Resp 15; Pulse Ox 96% ; ko1 16:21 Body Mass Index 25.09 (74.84 kg, 172.72 cm) db MDM: 16:26 Medical Screening Exam initiated sp3 17:28 Data reviewed: vital signs, nurses notes, lab test result(s), EKG, radiologic studies. sp3 ED course: 79-year-old female with complaints of generalized weakness and concern about hypotension. Currently blood pressure is 138/70 in the ED. Remaining vital signs are normal as well. Will assess kidney function and electrolytes as well as obtain a CT scan given her new mid back pain and history of AAA. If workup is negative and vitals remain normal, we will safely discharge patient home with no further intervention indicated.. 19:21 ED course: All labs without significant abnormality. CT scan demonstrates no MICHAEL stent sp3 aneurysm or hematoma. Stent is patent in the aorta and otherwise no other findings. Patient was reassured and we will safely discharge her home at this time.. 10/23 16:40 Order name: Basic Metabolic Panel; Complete Time: 19: [facility] 10/23 16:40 Order name: CBC with Diff; Complete Time: 19:11 [facility] 10/23 16:40 Order name: LFT's; Complete Time: 19:11 [facility] 10/23 16:40 Order name: Magnesium; Complete Time: 19:11 [facility] 10/23 16:40 Order name: NT PRO-BNP; Complete Time: 19:11 [facility] 10/23 16:40 Order name: PT-INR; Complete Time: 19:11 3 10/23 16:40 Order name: Troponin HS; Complete Time: 19:11 [facility] 10/23 16:40 Order name: XRAY Chest (1 view); Complete Time: 19:11 [facility] 10/23 17:17 Order name: CT Aorta for Dissection; Complete Time: 19:16 sp3 10/23 16:40 Order name: EKG; Complete Time: 16:41 sp3 10/23 16:40 Order name: Cardiac monitoring; Complete Time: 17:08 sp3 10/23 16:40 Order name: EKG - Nurse/Tech; Complete Time: 17:08 sp3 10/23 16:40 Order name: IV Saline Lock; Complete Time: 17:08 sp3 10/23 16:40 Order name: Labs collected and sent; Complete Time: 17:08 sp3 10/23 16:40 Order name: O2 Per Protocol; Complete Time: 17:08 sp3 10/23 16:40 Order name: O2 Sat Monitoring; Complete Time: 17:09 sp3 Administered Medications: No medications were administered Disposition Summary: 10/23/24 19:22 Discharge Ordered Notes: Location: Home sp3 Condition: Stable sp3 Diagnosis - Hypertension, aortic aneurysm, anxiety sp3 Followup: sp3 - With: Private Physician - When: Upon discharge from the Emergency Department - Reason: Continuance of care Discharge Instructions: - Discharge Summary Sheet sp3 - Managing Your Hypertension sp3 - Abdominal Aortic Aneurysm Endograft Repair, Care After sp3 Forms: - Medication Reconciliation Form sp3 - Antibiotic Education sp3 - Prescription Opioid Use sp3 - Patient Portal Instructions sp3 - Leadership Thank You Letter sp3 Signatures: Dispatcher [employer] Enoch Burk MD MD sp3 Christelle Chanel RN RN db Corrections: (The following items were deleted from the chart) 16:22 16:22 PMHx: Hypothyroidism; db db
--- NOTE | 2024-10-23 19:22 | ER ---
Nurse's Notes [facility] Name: Jennifer Bejarano Age: 79 yrs Sex: Female : 1945 Arrival Date: 10/23/2024 Time: 15:55 Bed 14 Private MD: Diagnosis: Hypertension, aortic aneurysm, anxiety Presentation: 10/23 16:21 Chief complaint: Patient states: LOW BP AT HOME TODAY 98 SYSTOLIC. STATES DID NOT TAKE db ANY BP MEDICATIONS TODAY. STATES FEELING WEAK. Coronavirus screen: Client denies travel out of the [place] in the last 14 days. At this time, the client does not indicate any symptoms associated with coronavirus-19. Ebola Screen: Patient negative for fever greater than or equal to 101.5 degrees Fahrenheit, and additional compatible Ebola Virus Disease symptoms Patient denies exposure to infectious person. Patient denies travel to an Ebola-affected area in the 21 days before illness onset. No symptoms or risks identified at this time. Initial Sepsis Screen: Does the patient meet any 2 criteria? No. Patient's initial sepsis screen is negative. Does the patient have a suspected source of infection? No. Patient's initial sepsis screen is negative. Risk Assessment: Do you want to hurt yourself or someone else? Patient reports no desire to harm self or others. Onset of symptoms Onset of symptoms was October 23, 2024. 16:21 Method Of Arrival: Wheelchair db 16:21 Acuity: NATASHA 3 db Triage Assessment: 16:22 General: Appears in no apparent distress. comfortable, Behavior is calm, cooperative, db appropriate for age. Pain: Denies pain. Neuro: Level of Consciousness is awake, alert, obeys commands, Oriented to person, place, time, situation. Respiratory: Airway is patent Respiratory effort is even, unlabored, Respiratory pattern is regular, symmetrical. Musculoskeletal: Circulation, motion, and sensation intact. Capillary refill < 3 seconds. Historical: - Allergies: 16:22 PENICILLINS; db - PMHx: 16:22 Anxiety; Hypertensive disorder; db - Immunization history:: Adult Immunizations unknown. - Infectious Disease History:: Denies. - Social history:: Smoking status: Patient reports the use of cigarette tobacco products, smokes one pack cigarettes per day. Screenin:52 [facility] ED Fall Risk Assessment (Adult) History of falling in the last 3 months, ko1 including since admission No falls in past 3 months (0 pts) Confusion or Disorientation No (0 pts) Intoxicated or Sedated No (0 pts) Impaired Gait No (0 pts) Mobility Assist Device Used No (0 pt) Altered Elimination No (0 pt) Score/Fall Risk Level 0 - 2 = Low Risk Oriented to surroundings, Maintained a safe environment, Educated pt \T\ family on fall prevention, incl call for assistance when getting out of bed, Assessed \T\ reinforced patient's understanding of fall precautions, Hourly rounding (assess needs \T\ fall precautionary measures) done. Abuse screen: Denies threats or abuse. Denies injuries from another. Nutritional screening: No deficits noted. Tuberculosis screening: No symptoms or risk factors identified. Assessment: 17:52 General: Appears in no apparent distress. Behavior is calm, cooperative, appropriate ko1 for age. Pain: Denies pain. Neuro: Reports weakness in generalized. Neuro: Level of Consciousness is awake, alert, obeys commands, Oriented to person, place, time, situation, Appropriate for age. Cardiovascular: No deficits noted. Respiratory: No deficits noted. GI: No deficits noted. : No deficits noted. EENT: No deficits noted. Derm: No deficits noted. Musculoskeletal: Reports pain in back. Vital Signs: 16:21 BP 108 / 60; Pulse 62; Resp 18; Temp 97.8(O); Pulse Ox 99% ; Weight 74.84 kg; Height 5 db ft. 8 in. ; 17:52 BP 135 / 64; Pulse 57; Resp 18; Pulse Ox 96% ; ko1 18:39 BP 144 / 61; Pulse 61; Resp 15; Pulse Ox 96% ; ko1 18:55 BP 134 / 76; Pulse 62; Resp 15; Pulse Ox 96% ; ko1 16:21 Body Mass Index 25.09 (74.84 kg, 172.72 cm) db ED Course: 15:57 Patient arrived in ED. im 16:00 Enoch Cruz MD is Attending Physician. sp3 16:22 Triage completed. db 16:22 Arm band placed on Patient placed in an exam room. db 17:04 Cyndi Mann, MANISH is Primary Nurse. ko1 17:05 Initial lab(s) drawn, by me, sent to lab. Inserted saline lock: 20 gauge in left db antecubital area, using aseptic technique. Blood collected. Flushed with 10 mL NS. 17:05 EKG done. db 17:06 XRAY Chest (1 view) In Process Unspecified. EDMS 17:52 Patient has correct armband on for positive identification. Allergy band placed. Bed in ko1 low position. Call light in reach. Side rails up X 1. Provided Education on: labs. Client placed on continuous cardiac and pulse oximetry monitoring. NIBP monitoring applied. appeals referee on. Door closed. Noise minimized. Lights dimmed. Warm blanket given. Pillow given. 17:52 No provider procedures requiring assistance completed. ko1 18:32 CT Aorta for Dissection In Process Unspecified. EDMS 19:40 intact, bleeding controlled, No redness/swelling at site. Pressure dressing applied. cp4 Administered Medications: No medications were administered Medication: 17:52 VIS not applicable for this client. ko1 Outcome: 19:22 Discharge ordered by . sp3 19:40 Discharged to home ambulatory, cp4 19:40 Condition: stable 19:40 Discharge instructions given to patient, Instructed on discharge instructions, follow up and referral plans. Demonstrated understanding of instructions, follow-up care, 19:41 Patient left the ED. cp4 Signatures: Dispatcher [employer] EDMS Enoch Cruz MD MD sp3 Cyndi Mann RN RN ko1 Christelle Chanel, MANISH RN Vanessa Gill Christina cp4 Corrections: (The following items were deleted from the chart) 16:22 16:22 PMHx: Hypothyroidism; db db
[2024-10-23 19:45] VITALS: TEMP 97.8
[2024-10-23 19:47] VITALS: O2SAT 96
[2024-10-23 19:49] VITALS: BP 134/76
--- NOTE | 2024-10-24 15:40 | EKG ---
Test Date: 2024-10-23 Test Time: 17:05:08 Vein Access Technician: ELOY MEASUREMENT RESULTS: Intervals: Rate: 58 KS: 164 QRSD: 80 QT: 442 QTc: 433 [place]: P: 52 KS: 164 QRS: 37 T: 45 INTERPRETIVE STATEMENTS: Sinus bradycardia with frequent premature ventricular complexes Otherwise normal ECG Compared to ECG 08/13/2023 11:57:37 Ventricular premature complex(es) now present Sinus rhythm no longer present Sinus arrhythmia no longer present Electronically Signed On 10-24-24 15:39:46 BRIM ROUNDER by Lucas Magana
== END 2024-10-23 19:41 | disposition home or self-care (01) ==
LOC: ER 15:55
DX: I10 Essential (primary) hypertension (principal); I71.9 Aortic aneurysm of unspecified site, without rupture; F41.9 Anxiety disorder, unspecified; F17.210 Nicotine dependence, cigarettes, uncomplicated; Z88.0 Allergy status to penicillin
CPT/HCPCS: 93005; 85025; 80048; 36415; 83735; 85610; 80076; 84484; 83880; 71275; 74175; 71045; 99284; Q9967